=== PATIENT | female | born 1970 | race Hispanic/Latino ===

== ENCOUNTER → 2017-05-02 | Outpatient (CLI) | payer OTHER ==
[2017-05-02 13:19] LABS: ALBUMIN 3.4 g/dL (3.5-5.0); BILIRUBIN,DIRECT 0.1 mg/dL (0.0-0.3); BILIRUBIN,TOTAL 0.4 mg/dL (0.2-1.0); CREATININE 0.9 mg/dL (0.5-1.5); CRP QUANTITATIVE 13.3 mg/L (0.00-9.0); THYROID STIMULATING HORMONE 2.06 uIU/mL (0.36-3.74); TOTAL PROTEIN, SERUM 8.1 g/dL (6.0-8.3)
[2017-05-02 13:31] LABS: EOSINOPHILS % (AUTO) 1.3 % (0.0-8.0); LYMPHOCYTES % (AUTO) 26.1 % (21.0-51.0); MEAN CORPUSCULAR HEMOGLOBIN 26.2 pg (27.0-33.0); MEAN CORPUSCULAR HGB CONC 33.3 g/dL (32.0-36.0); MEAN CORPUSCULAR VOLUME 78.7 fL (79-99); MONOCYTES % (AUTO) 4.7 % (3.0-13.0); NEUTROPHILS % (AUTO) 66.9 % (40.0-77.0); PLATELET COUNT (AUTO) 227 K/uL (130-400); RED BLOOD CELL COUNT(AUTO) 5.09 MIL/uL (4.00-5.50); RED CELL DISTRIBUTION WIDTH 14.5 % (11.0-15.5); WHITE BLOOD COUNT (AUTO) 8.7 K/uL (4.8-10.8)
[2017-05-02 14:36] LABS: ERYTHROCYTE SEDIMENTATION RATE 36 MM/HR (0-15)
[2017-05-06 06:15] LABS: VITAMIN D, 25-HYDROXY 15.7 ng/mL (30.0-100.0)
== END | disposition home or self-care (01) ==
LOC: LAB 11:53
PROVIDERS: ATTEND Internal Medicine
DX: I10 Essential (primary) hypertension (principal); E66.2 Morbid (severe) obesity with alveolar hypoventilation; R73.01 Impaired fasting glucose; R53.83 Other fatigue; Z98.891 History of uterine scar from previous surgery; Z98.890 Other specified postprocedural states
CPT/HCPCS: 36415; 80053; 80061; 82043; 82248; 82306; 82607; 83036; 83540; 84439; 84443; 85025; 85651; 86038; 86141; 86215; 86235; 86431

== ENCOUNTER 2017-07-08 15:50 | Emergency (ER) | payer OTHER ==
[2017-07-08] MEDS ORDERED: SODIUM CHLORIDE 0.9% 1000ML 1,000 ML IV ONE (16:15)
[2017-07-08] MEDS ORDERED: DICYCLOMINE HCL 10 MG/ML 2ML AMP IM ONE (16:15)
[2017-07-08 16:33] LABS: BASOPHILS % (AUTO) 0.6 % (0.0-5.0); EOSINOPHILS % (AUTO) 1.5 % (0.0-8.0); LYMPHOCYTES % (AUTO) 24.7 % (21.0-51.0); MEAN CORPUSCULAR HEMOGLOBIN 26.8 pg (27.0-33.0); NEUTROPHILS % (AUTO) 65.2 % (40.0-77.0); PLATELET COUNT (AUTO) 243 K/uL (130-400); RED CELL DISTRIBUTION WIDTH 14.4 % (11.0-15.5)
[2017-07-08 16:46] LABS: CREATININE 1.1 mg/dL (0.5-1.5); POTASSIUM 3.4 mmol/L (3.5-5.1)
[2017-07-08 16:50] LABS: ALBUMIN 3.2 g/dL (3.5-5.0); BILIRUBIN,TOTAL 0.2 mg/dL (0.2-1.0); TOTAL PROTEIN, SERUM 7.7 g/dL (6.0-8.3)
[2017-07-08 17:33] LABS: APPEARANCE,URINE Cloudy (CLEAR); BILIRUBIN,URINE Negative (NEGATIVE); COLOR,URINE Yellow (YELLOW); GLUCOSE, URINE (UA) Negative (NEGATIVE); KETONES,URINE Negative (NEGATIVE); LEUKOCYTE ESTERASE ,URINE Small (NEGATIVE); NITRATE,URINE Negative (NEGATIVE); OCCULT BLOOD,URINE Negative (NEGATIVE); PH,URINE 5.5 (5.0-8.0); PROTEIN,URINE POS 1+ (NEGATIVE)
[2017-07-08 17:52] LABS: AMORPHOUS SEDIMENT,UR Few /LPF (None Seen); BACTERIA,URINE Few /HPF (None Seen); RBC,URINE None Seen /HPF (0-1); SQUAMOUS EPITHELIAL CELL,UR 30-50 /HPF (0-2)
== END 2017-07-08 17:53 | disposition home or self-care (01) ==
LOC: EDH 15:50
DX: R10.9 Unspecified abdominal pain (principal); B96.81 Helicobacter pylori [H. pylori] as the cause of diseases classified elsewhere; E11.9 Type 2 diabetes mellitus without complications; I10 Essential (primary) hypertension; Z88.1 Allergy status to other antibiotic agents; Z91.013 Allergy to seafood; Z91.018 Allergy to other foods
CPT/HCPCS: 36415; 74176; 80053; 81001; 82150; 83690; 85025; 86677; 96372; 99285; J0500; J7030

== ENCOUNTER → 2017-07-23 | Outpatient (CLI) | payer OTHER ==
[2017-07-23 17:09] LABS: BASOPHILS % (AUTO) 0.7 % (0.0-5.0); EOSINOPHILS % (AUTO) 1.8 % (0.0-8.0); HEMATOCRIT 34.7 % (36-48); LYMPHOCYTES % (AUTO) 27.9 % (21.0-51.0); MEAN CORPUSCULAR HEMOGLOBIN 26.8 pg (27.0-33.0); MEAN CORPUSCULAR HGB CONC 33.6 g/dL (32.0-36.0); MEAN CORPUSCULAR VOLUME 79.6 fL (79-99); NEUTROPHILS % (AUTO) 63.6 % (40.0-77.0); PLATELET COUNT (AUTO) 210 K/uL (130-400); RED BLOOD CELL COUNT(AUTO) 4.36 MIL/uL (4.00-5.50); RED CELL DISTRIBUTION WIDTH 14.7 % (11.0-15.5); WHITE BLOOD COUNT (AUTO) 7.2 K/uL (4.8-10.8)
[2017-07-23 18:35] LABS: ERYTHROCYTE SEDIMENTATION RATE 36 MM/HR (0-15)
== END | disposition home or self-care (01) ==
LOC: LAB 10:00
PROVIDERS: ATTEND Internal Medicine
DX: M05.771 Rheumatoid arthritis with rheumatoid factor of right ankle and foot without organ or systems involvement (principal)
CPT/HCPCS: 36415; 85025; 85651; 86140; 86431

== ENCOUNTER 2018-01-17 17:48 | Emergency (ER) | payer OTHER ==
[2018-01-17 18:02] LABS: APPEARANCE,URINE Clear (CLEAR); BILIRUBIN,URINE Negative (NEGATIVE); COLOR,URINE Yellow (YELLOW); GLUCOSE, URINE (UA) Negative (NEGATIVE); KETONES,URINE Trace mg/dL (NEGATIVE); LEUKOCYTE ESTERASE ,URINE Trace (NEGATIVE); NITRATE,URINE Negative (NEGATIVE); OCCULT BLOOD,URINE Negative (NEGATIVE); PH,URINE 6.5 (5.0-8.0); PROTEIN,URINE POS 1+ (NEGATIVE)
[2018-01-17 18:37] LABS: BACTERIA,URINE Few /HPF (None Seen); MUCUS,URINE Few LPF (None Seen); RBC,URINE 0-1 /HPF (0-1); SQUAMOUS EPITHELIAL CELL,UR Few /HPF (0-2)
== END 2018-01-17 19:26 | disposition home or self-care (01) ==
LOC: EDH 17:48
DX: N39.0 Urinary tract infection, site not specified (principal)
CPT/HCPCS: 81001

== ENCOUNTER → 2018-04-10 | Outpatient (CLI) | payer OTHER ==
[2018-04-10 11:03] LABS: BASOPHILS % (AUTO) 0.8 % (0.0-5.0); EOSINOPHILS % (AUTO) 1.7 % (0.0-8.0); HEMATOCRIT 40.4 % (36-48); MEAN CORPUSCULAR HEMOGLOBIN 26.4 pg (27.0-33.0); MEAN CORPUSCULAR HGB CONC 33.2 g/dL (32.0-36.0); MEAN CORPUSCULAR VOLUME 79.6 fL (79-99); MONOCYTES % (AUTO) 5.9 % (3.0-13.0); NEUTROPHILS % (AUTO) 61.6 % (40.0-77.0); NUCLEATED RED BLOOD CELLS 0.2 % (0.0-0.19); PLATELET COUNT (AUTO) 204 K/uL (130-400); RED BLOOD CELL COUNT(AUTO) 5.08 MIL/uL (4.00-5.50); RED CELL DISTRIBUTION WIDTH 14.4 % (11.0-15.5); WHITE BLOOD COUNT (AUTO) 5.9 K/uL (4.8-10.8)
[2018-04-10 11:07] LABS: POTASSIUM 3.9 mmol/L (3.5-5.1)
[2018-04-10 11:19] LABS: ALBUMIN 3.5 g/dL (3.5-5.0); BILIRUBIN,DIRECT 0.1 mg/dL (0.0-0.3); BILIRUBIN,TOTAL 0.3 mg/dL (0.2-1.0); THYROID STIMULATING HORMONE 2.81 uIU/mL (0.36-3.74); TOTAL PROTEIN, SERUM 8.3 g/dL (6.0-8.3)
[2018-04-10 11:31] LABS: HEMOGLOBIN A1C 7.2 % (4.0-6.0)
== END | disposition home or self-care (01) ==
LOC: RAH 09:30
PROVIDERS: ATTEND Internal Medicine
DX: M24.811 Other specific joint derangements of right shoulder, not elsewhere classified (principal); M25.511 Pain in right shoulder; E11.9 Type 2 diabetes mellitus without complications; R70.0 Elevated erythrocyte sedimentation rate; R79.82 Elevated C-reactive protein (CRP)
CPT/HCPCS: 36415; 73221; 80053; 80061; 80076; 82043; 82306; 82607; 82728; 83036; 84443; 85025

== ENCOUNTER 2018-05-06 19:08 | Emergency (ER) | payer OTHER | END 2018-05-06 19:41 | disposition home or self-care (01) | LOC: EDH 19:08 | DX: G56.01 Carpal tunnel syndrome, right upper limb (principal); I10 Essential (primary) hypertension; Z88.1 Allergy status to other antibiotic agents; Z90.710 Acquired absence of both cervix and uterus; Z98.890 Other specified postprocedural states | CPT/HCPCS: 29125 ==

== ENCOUNTER 2018-08-12 21:34 | Inpatient (IN) | payer OTHER ==
[~2018-08-12] VITALS: Ht 152.4 cm; Wt 135.2 kg
[2018-08-13] VITALS: BP 187/91
[2018-08-13 04:00] VITALS: BP 143/69
[2018-08-13] MEDS ORDERED: IBUP-2077 PO (05:16)
[2018-08-13] MEDS ORDERED: LOSA1TAB42 PO (05:16)
[2018-08-13] MEDS ORDERED: CARV12.580 PO (05:16)
[2018-08-13 07:34] LABS: HEMATOCRIT 39.4 % (36-48); MEAN CORPUSCULAR HEMOGLOBIN 26.8 pg (27.0-33.0); MEAN CORPUSCULAR HGB CONC 33.6 g/dL (32.0-36.0); NUCLEATED RED BLOOD CELLS 0.1 % (0.0-0.19); PLATELET COUNT (AUTO) 189 K/uL (130-400); RED BLOOD CELL COUNT(AUTO) 4.93 MIL/uL (4.00-5.50); RED CELL DISTRIBUTION WIDTH 14.7 % (11.0-15.5); WHITE BLOOD COUNT (AUTO) 7.4 K/uL (4.8-10.8)
[2018-08-13 07:41] VITALS: BP 164/100
[2018-08-13 07:42] LABS: ALBUMIN 3.3 g/dL (3.5-5.0); BILIRUBIN,TOTAL 0.3 mg/dL (0.2-1.0); CREATININE 0.9 mg/dL (0.5-1.5); POTASSIUM 3.7 mmol/L (3.5-5.1); TOTAL PROTEIN, SERUM 7.7 g/dL (6.0-8.3)
[2018-08-13] MEDS ORDERED: GADODIAMIDE 10 MMOL/20 ML VIAL IV ONE (08:25)
--- NOTE | 2018-08-13 09:00 | NUR ---
DR. PRATIBHA CORONADO HERE TO SEE PATIENT, PATIENT CURRENTLY IN MRI PROCEDURE.
[2018-08-13] MEDS ORDERED: IBUPROFEN 800 MG TAB PO PRN (09:30)
[2018-08-13] MEDS ORDERED: NON-FORMULARY MEDICATION 1 EACH (Losartan/Hydrochlorothiazide (Losartan-Hctz 100-12.5 mg T PO PRN (09:30)
[2018-08-13] MEDS ORDERED: CARVEDILOL 12.5 MG TABLET PO ONE (10:53)
[2018-08-13 11:53] VITALS: BP 159/90
--- NOTE | 2018-08-13 12:19 | NUR ---
PAGED DR. LEDBETTER CALLED DR. LEDBETTER TO INFORM HIM OF DR. MCKINNON'S RECOMMENDATIONS REGARDING MRI BRAIN RESULTS AND RECOMMEND ONCOLOGY CONSULT. NO ANSWER AT THIS TIME. WILL REATTEMPT TO CALL
--- NOTE | 2018-08-13 13:00 | NUR ---
REPAGED DR. LEDBETTER REATTEMPTED TO CALL , NO ANSWER AT THIS TIME.
--- NOTE | 2018-08-13 14:20 | NUR ---
DR. LEDBETTER SPOKE TO REGARDING DR. MCKINNON'S RECOMMENDATIONS. DR. LEDBETTER GAVE TELEPHONE ORDER TO CONSULT WITH DR. ALICEA.
--- NOTE | 2018-08-13 14:27 | NUR ---
DR. NIXON CROWE MD REGARDING CONSULT, AWAITING CALLBACK.
--- NOTE | 2018-08-13 15:55 | NUR ---
DR. SALONI ALICEA IS OUT OF TOWN, DR. ALICEA'S OFFICE INFORMED ME DR. GUALLPA COVERING FOR DR. ALICEA. DR. GUALLPA PAGED REGARDING CONSULT. AWAITING CALLBACK.
--- NOTE | 2018-08-13 16:00 | NUR ---
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 Will follow for MD recommendation. DORA pollard at this time Addendum: 08/13/18 at 1739 by GREY CABRAL RN CM Amended: Links added.
[2018-08-13 16:44] VITALS: BP 168/76
[2018-08-13 19:30] VITALS: BP 156/97
[2018-08-14] VITALS (7 sets, daily range): BP systolic 134–169; BP diastolic 74–105
[2018-08-14 05:08] LABS: THYROID STIMULATING HORMONE 4.78 uIU/mL (0.36-3.74)
--- NOTE | 2018-08-14 07:25 | NUR ---
MD MARIO. DR.KOTTA MARIO IN PT ROOM THIS MORNING. DISCUSSED WITH PT PLAN OF CARE. NEW ORDERS GIVEN TO CONSULT NEUROSURGERY INSULATION NOZZLEMAN. PT IS AWARE AND VERBALIZES UNDERSTANDING TO TREATMENT PLAN. Addendum: 08/14/18 at 0739 by TROY FARMER RN Amended: Links added.
[2018-08-14] MEDS ORDERED: GADODIAMIDE 10 MMOL/20 ML VIAL IV ONE (07:52)
[2018-08-14] MEDS: CARVEDILOL 12.5 MG TABLET PO SCH (11:38)
--- NOTE | 2018-08-14 16:11 | NUR ---
notified dr. jha about the consult. he verbalized that he will the patient tomorrow and ordered decadron 4 mg IV q6.
[2018-08-14] MEDS: DEXAMETHASONE SOD PHOSPHATE 4 MG/ML 1ML VIAL IVP SCH (22:19)
[2018-08-15] MEDS: DEXAMETHASONE SOD PHOSPHATE 4 MG/ML 1ML VIAL IVP SCH ×3 (01:00→12:36)
[2018-08-15] MEDS ORDERED: CARV12.511 PO (01:44)
[2018-08-15 04:05] VITALS: BP 134/87
[2018-08-15 07:30] VITALS: BP 157/97
[2018-08-15] MEDS ORDERED: LOSA1TAB42 PO (07:40)
[2018-08-15] MEDS ORDERED: CARVEDILOL 12.5 MG TABLET PO SCH (09:00)
[2018-08-15] MEDS ORDERED: NON-FORMULARY MEDICATION 1 EACH (Losartan/Hydrochlorothiazide (Losartan-Hctz 100-12.5 mg T PO SCH (09:00)
[2018-08-15] MEDS ORDERED: LOSARTAN 100 MG TABLET PO SCH (09:01)
[2018-08-15] MEDS ORDERED: HYDROCHLOROTHIAZIDE 25 MG TABLET PO SCH (09:02)
[2018-08-15] MEDS: CARVEDILOL 12.5 MG TABLET PO SCH (09:23)
[2018-08-15 11:00] VITALS: BP 163/107
== END 2018-08-15 18:00 | disposition home or self-care (01) | DRG 55 ==
LOC: EDH 21:34 → INTOOBSV 21:35 → OBSVTOIN 21:35 → EDHIP 21:35 → 4BH 22:12
PROVIDERS: ADMIT Internal Medicine; ATTEND Internal Medicine
DX: D49.6 Neoplasm of unspecified behavior of brain (principal); H46.9 Unspecified optic neuritis; I10 Essential (primary) hypertension; E11.9 Type 2 diabetes mellitus without complications; Z98.84 Bariatric surgery status; Z90.710 Acquired absence of both cervix and uterus
CPT/HCPCS: 36415; 70553; 80053; 80400; 83001; 83002; 84146; 84439; 84443; 84481; 85027; A9579; G0378; J1100

== ENCOUNTER → 2018-09-28 | Outpatient (CLI) | payer OTHER ==
[~2018-09-28] MED LIST: CARV12.511 PO; IBUP-2077 PO; LOSA1TAB42 PO
[2018-09-28 15:26] LABS: BASOPHILS % (AUTO) 0.6 % (0.0-5.0); EOSINOPHILS % (AUTO) 1.8 % (0.0-8.0); HEMATOCRIT 38.3 % (36-48); LYMPHOCYTES % (AUTO) 20.8 % (21.0-51.0); MEAN CORPUSCULAR HEMOGLOBIN 27.1 pg (27.0-33.0); MEAN CORPUSCULAR HGB CONC 33.2 g/dL (32.0-36.0); MEAN CORPUSCULAR VOLUME 81.5 fL (79-99); MONOCYTES % (AUTO) 5.8 % (3.0-13.0); NUCLEATED RED BLOOD CELLS 0.1 % (0.0-0.19); PLATELET COUNT (AUTO) 205 K/uL (130-400); RED CELL DISTRIBUTION WIDTH 14.7 % (11.0-15.5); WHITE BLOOD COUNT (AUTO) 7.7 K/uL (4.8-10.8)
[2018-09-28 15:30] LABS: CREATININE 1.2 mg/dL (0.5-1.5); POTASSIUM 4.1 mmol/L (3.5-5.1)
[2018-09-28 15:34] LABS: INR 0.96 (0.85-1.15); PARTIAL THROMBOPLASTIN TIME 26.4 SEC (26.3-35.5); PROTHROMBIN TIME 10.1 SEC (9.6-11.6)
== END | disposition home or self-care (01) ==
LOC: LAB 14:15
PROVIDERS: ATTEND Internal Medicine
DX: I10 Essential (primary) hypertension (principal); R22.0 Localized swelling, mass and lump, head
CPT/HCPCS: 36415; 80048; 85025; 85610; 85730

== ENCOUNTER → 2018-12-01 | Outpatient (CLI) | payer OTHER | END | disposition home or self-care (01) | LOC: LAB 13:52 | PROVIDERS: ATTEND Internal Medicine | DX: I10 Essential (primary) hypertension (principal) | CPT/HCPCS: 36415; 80048 ==

== ENCOUNTER → 2018-12-02 | Outpatient (CLI) | payer OTHER ==
[2018-12-01 15:02] LABS: POTASSIUM 4.2 mmol/L (3.5-5.1)
[~2018-12-02] MED LIST changes: +GADODIAMIDE 10 MMOL/20 ML VIAL IV ONE
== END | disposition home or self-care (01) ==
LOC: RAH 12-01 10:00
PROVIDERS: ATTEND Internal Medicine
DX: I62.00 Nontraumatic subdural hemorrhage, unspecified (principal); R22.0 Localized swelling, mass and lump, head; Z98.890 Other specified postprocedural states
CPT/HCPCS: 70553; A9579; 36415; 80048

== ENCOUNTER → 2019-07-28 | Outpatient (CLI) | payer OTHER ==
[~2019-07-28] MED LIST changes: +APIX5TAB PO; +ASCO500T20 PO; +ASPI-1005 PO; +ASPI-1012 PO; +DEXA6TAB PO; +DOXY100T2 PO; -GADODIAMIDE 10 MMOL/20 ML VIAL IV ONE; +GUAI5SYR PO; +METH4TAB3 PO; +ZINC220C6 PO
[2019-07-28 08:54] LABS: BASOPHILS % (AUTO) 0.6 % (0.0-5.0); EOSINOPHILS % (AUTO) 1.6 % (0.0-8.0); HEMATOCRIT 40.8 % (36-48); LYMPHOCYTES % (AUTO) 22.3 % (21.0-51.0); MEAN CORPUSCULAR HGB CONC 30.9 g/dL (32.0-36.0); MEAN CORPUSCULAR VOLUME 80.8 fL (79-99); MONOCYTES % (AUTO) 4.9 % (3.0-13.0); NEUTROPHILS % (AUTO) 70.3 % (40.0-77.0); PLATELET COUNT (AUTO) 239 K/uL (130-400); RED BLOOD CELL COUNT(AUTO) 5.05 MIL/uL (4.00-5.50); RED CELL DISTRIBUTION WIDTH 14.5 % (11.0-15.5); WHITE BLOOD COUNT (AUTO) 6.8 K/uL (4.8-10.8)
[2019-07-28 09:33] LABS: HEMOGLOBIN A1C 6.9 % (4.0-6.0)
[2019-07-28 09:34] LABS: ALANINE AMINOTRANSFERASE 26 U/L (12-78); ALBUMIN 3.6 g/dL (3.5-5.0); ASPARTATE AMINOTRANSFERASE 19 U/L (10-37); BILIRUBIN,DIRECT 0.1 mg/dL (0.0-0.3); BILIRUBIN,TOTAL 0.3 mg/dL (0.2-1.0); CARBON DIOXIDE 31 mmol/L (21-32); CHLORIDE 102 mmol/L (101-111); CHOLESTEROL 154 mg/dL (<200); GLOMERULAR FILTR. RATE CALC 63 mL/min (>60); GLUCOSE,RANDOM 122 mg/dL (70-105); HDL CHOLESTEROL 42 mg/dL (35-85); LDL DIRECT 90 mg/dL (0-99); POTASSIUM 3.6 mmol/L (3.5-5.1); SODIUM SERUM 140 mmol/L (136-145); THYROID STIMULATING HORMONE 3.59 uIU/mL (0.36-3.74); TOTAL PROTEIN, SERUM 8.3 g/dL (6.0-8.3); TRIGLYCERIDES 139 mg/dL (30-200); UREA NITROGEN, BLOOD 15 mg/dL (7-18)
[2019-07-28 09:40] LABS: AMMONIA < 3 umol/L (11-32)
== END | disposition home or self-care (01) ==
LOC: LAB 07:11
PROVIDERS: ATTEND Internal Medicine
DX: E11.65 Type 2 diabetes mellitus with hyperglycemia (principal); E26.1 Secondary hyperaldosteronism; E66.2 Morbid (severe) obesity with alveolar hypoventilation; I10 Essential (primary) hypertension; R22.0 Localized swelling, mass and lump, head
CPT/HCPCS: 36415; 80053; 80061; 80076; 82140; 82306; 82533; 82607; 82672; 82728; 83036; 84144; 84443; 85025

== ENCOUNTER → 2019-08-13 | Outpatient (CLI) | payer OTHER | END | disposition home or self-care (01) | LOC: RAH 12:47 | PROVIDERS: ATTEND Internal Medicine | DX: Z98.890 Other specified postprocedural states (principal) | CPT/HCPCS: 70553 ==

== ENCOUNTER 2019-09-05 13:43 | Emergency (ER) | payer OTHER ==
[~2019-09-05 13:43] MED LIST changes: -APIX5TAB PO; -ASCO500T20 PO; -ASPI-1005 PO; -ASPI-1012 PO; -DEXA6TAB PO; -DOXY100T2 PO; -GUAI5SYR PO; -METH4TAB3 PO; -ZINC220C6 PO
[2019-09-05 15:02] LABS: RAPID GROUP A STREP NEGATIVE (NEGATIVE)
[2019-09-12] MEDS ORDERED: GUAI5SYR PO ×2 (11:58)
[2019-09-12] MEDS ORDERED: ASPI-1012 PO ×2 (11:58)
[2019-09-12] MEDS ORDERED: DOXY100T2 PO ×2 (11:58)
[2019-09-12] MEDS ORDERED: ZINC220C6 PO ×2 (11:58)
[2019-09-12] MEDS ORDERED: ASCO500T20 PO ×2 (11:58)
[2019-09-12] MEDS ORDERED: METH4TAB3 PO ×2 (11:58)
== END 2019-09-05 16:39 | disposition home or self-care (01) ==
LOC: EDH 13:43
DX: U07.1 COVID-19 (principal); R05 Cough; I10 Essential (primary) hypertension; Z88.1 Allergy status to other antibiotic agents
CPT/HCPCS: 36415; 87804 ×2; 87880; 99283; U0003

== ENCOUNTER 2019-09-10 12:16 | Inpatient (IN) | payer OTHER ==
[~2019-09-10] VITALS: Ht 152.4 cm; Wt 131.3 kg
[2019-09-10] MEDS ORDERED: CEFTRIAXONE SODIUM 1 GM ONE (14:32)
[2019-09-10] MEDS ORDERED: METHYLPREDNISOLONE SOD SUCC 40MG/ML 1ML ONE (14:32)
[2019-09-10] MEDS ORDERED: SODIUM CHLORIDE 0.9% 1000ML 1,000 ML IV ONE ×2 (14:32→16:39)
[2019-09-10 14:35] LABS: BASOPHILS % (AUTO) 0.2 % (0.0-5.0); HEMATOCRIT 41.8 % (36-48); LYMPHOCYTES % (AUTO) 9.3 % (21.0-51.0); MEAN CORPUSCULAR HEMOGLOBIN 25.6 pg (27.0-33.0); MEAN CORPUSCULAR HGB CONC 32.1 g/dL (32.0-36.0); MEAN CORPUSCULAR VOLUME 79.9 fL (79-99); MONOCYTES % (AUTO) 5.5 % (3.0-13.0); NEUTROPHILS % (AUTO) 84.8 % (40.0-77.0); PLATELET COUNT (AUTO) 160 K/uL (130-400); RED BLOOD CELL COUNT(AUTO) 5.23 MIL/uL (4.00-5.50); RED CELL DISTRIBUTION WIDTH 14.9 % (11.0-15.5); WHITE BLOOD COUNT (AUTO) 4.9 K/uL (4.8-10.8)
[2019-09-10] MEDS ORDERED: SODIUM CHLORIDE 0.9% 50 ML IV ONE (14:36)
[2019-09-10 14:50] LABS: INR 0.92 (0.85-1.15); PARTIAL THROMBOPLASTIN TIME 26.4 SEC (26.3-35.5)
[2019-09-10] MEDS ORDERED: AZITHROMYCIN 500MG+NS 250ML 250 ML IV ONE (14:59)
[2019-09-10 15:03] LABS: CARBON DIOXIDE 30 mmol/L (21-32); CHLORIDE 100 mmol/L (101-111); CREATININE 0.8 mg/dL (0.5-1.5); GLOMERULAR FILTR. RATE CALC 82 mL/min (>60); GLUCOSE,RANDOM 142 mg/dL (70-105); POTASSIUM 4.2 mmol/L (3.5-5.1); SODIUM SERUM 138 mmol/L (136-145); UREA NITROGEN, BLOOD 16 mg/dL (7-18)
[2019-09-10 15:15] LABS: ALANINE AMINOTRANSFERASE 48 U/L (12-78); ALBUMIN 3.6 g/dL (3.5-5.0); ASPARTATE AMINOTRANSFERASE 34 U/L (10-37); BILIRUBIN,TOTAL 0.3 mg/dL (0.2-1.0); CREATINE KINASE, TOTAL 97 U/L (21-232); MYOGLOBIN 41 ng/mL (10-92); TOTAL PROTEIN, SERUM 8.9 g/dL (6.0-8.3); TROPONIN I < 0.04 ng/mL (0.00-0.06)
[2019-09-10] MEDS: CEFTRIAXONE SODIUM 1 GM IVP SCH (17:00)
[2019-09-10] MEDS ORDERED: ERGOCALCIFEROL (VITAMIN D2) 50,000 UNIT CAPSULE PO ONE (17:00)
[2019-09-10] MEDS ORDERED: ACETAMINOPHEN 325 MG TAB PO PRN ×2 (17:00)
[2019-09-10] MEDS ORDERED: ONDANSETRON HCL 4 MG/2 ML VIAL IV PRN (17:00)
[2019-09-10] MEDS ORDERED: GUAIFENESIN-DM 200/20 MG 10 ML PO PRN (17:30)
[2019-09-10 17:40] LABS: APPEARANCE,URINE Cloudy (CLEAR); BILIRUBIN,URINE Negative (NEGATIVE); COLOR,URINE Yellow (YELLOW); GLUCOSE, URINE (UA) Negative (NEGATIVE); KETONES,URINE Trace mg/dL (NEGATIVE); LEUKOCYTE ESTERASE ,URINE Small (NEGATIVE); NITRATE,URINE Negative (NEGATIVE); OCCULT BLOOD,URINE Negative (NEGATIVE); PROTEIN,URINE POS 2+ mg/dL (NEGATIVE)
[2019-09-10 17:55] LABS: BACTERIA,URINE Few /HPF (None Seen); MUCUS,URINE Moderate LPF (None Seen); SQUAMOUS EPITHELIAL CELL,UR Moderate /HPF (0-2)
[2019-09-10] MEDS: DOXYCYCLINE HYCLATE 100 MG TABLET PO SCH (21:00)
[2019-09-10] MEDS: METHYLPREDNISOLONE SOD SUCC 40MG/ML 1ML IVP SCH (21:00)
[2019-09-10] MEDS: FAMOTIDINE/PF 20 MG/2 ML VIAL IV SCH (21:00)
[2019-09-10] MEDS: CARVEDILOL 12.5 MG TABLET PO SCH (21:00)
[2019-09-10] MEDS: ENOXAPARIN SODIUM 40 MG/0.4 ML SYRINGE SQ SCH (21:00)
[2019-09-10] MEDS ORDERED: GUAIFENESIN-DM 200/20 MG 10 ML ONE (21:12)
[2019-09-10] MEDS ORDERED: DOXYCYCLINE HYCLATE 100 MG TABLET PO ONE (21:12)
[2019-09-10] MEDS ORDERED: ERGOCALCIFEROL (VITAMIN D2) 50,000 UNIT CAPSULE ONE (21:12)
[2019-09-10] MEDS ORDERED: CARVEDILOL 12.5 MG TABLET PO ONE (21:12)
[2019-09-10] MEDS ORDERED: FAMOTIDINE/PF 20 MG/2 ML VIAL IV ONE (21:13)
[2019-09-11] MEDS ORDERED: CEFTRIAXONE SODIUM 1 GM ONE (02:45)
[2019-09-11 03:15] VITALS: BP 142/73
[2019-09-11 04:16] VITALS: BP 140/79
[2019-09-11] MEDS: CEFTRIAXONE SODIUM 1 GM IVP SCH ×2 (06:02→16:54)
[2019-09-11 08:00] VITALS: BP 156/88
[2019-09-11] MEDS: HYDROCHLOROTHIAZIDE 25 MG TABLET PO SCH (09:11)
[2019-09-11] MEDS: ASCORBIC ACID 500 MG TAB PO SCH (09:11)
[2019-09-11] MEDS: LOSARTAN 100 MG TABLET PO SCH (09:11)
[2019-09-11] MEDS: DOXYCYCLINE HYCLATE 100 MG TABLET PO SCH ×2 (09:11→21:17)
[2019-09-11] MEDS: CARVEDILOL 12.5 MG TABLET PO SCH ×2 (09:12→21:17)
[2019-09-11] MEDS: METHYLPREDNISOLONE SOD SUCC 40MG/ML 1ML IVP SCH ×3 (09:13→21:16)
[2019-09-11] MEDS: FAMOTIDINE/PF 20 MG/2 ML VIAL IV SCH ×2 (09:13→21:14)
[2019-09-11] MEDS: ENOXAPARIN SODIUM 40 MG/0.4 ML SYRINGE SQ SCH ×2 (09:14→21:25)
[2019-09-11 11:02] LABS: HEMOGLOBIN A1C 7.5 % (4.0-6.0)
[2019-09-11 11:12] LABS: ALANINE AMINOTRANSFERASE 40 U/L (12-78); ASPARTATE AMINOTRANSFERASE 27 U/L (10-37); BILIRUBIN,TOTAL 0.2 mg/dL (0.2-1.0); CARBON DIOXIDE 31 mmol/L (21-32); CHLORIDE 104 mmol/L (101-111); CREATININE 0.9 mg/dL (0.5-1.5); GLOMERULAR FILTR. RATE CALC 71 mL/min (>60); GLUCOSE,RANDOM 135 mg/dL (70-105); POTASSIUM 4.1 mmol/L (3.5-5.1); SODIUM SERUM 138 mmol/L (136-145); TOTAL PROTEIN, SERUM 7.3 g/dL (6.0-8.3); UREA NITROGEN, BLOOD 15 mg/dL (7-18)
[2019-09-11] MEDS ORDERED: IOHEXOL 350 MG/ML 100ML INFUS..BTL IV ONE (11:56)
[2019-09-11 12:00] VITALS: BP 161/91
[2019-09-11 16:00] VITALS: BP 164/89
[2019-09-11] MEDS: ZINC SULFATE 220 CAPSULE PO SCH (16:55)
[2019-09-11 17:52] LABS: BASOPHILS % (AUTO) 0.2 % (0.0-5.0); HEMATOCRIT 39.5 % (36-48); LYMPHOCYTES % (AUTO) 11.7 % (21.0-51.0); MEAN CORPUSCULAR HEMOGLOBIN 25.3 pg (27.0-33.0); MEAN CORPUSCULAR HGB CONC 31.1 g/dL (32.0-36.0); MEAN CORPUSCULAR VOLUME 81.3 fL (79-99); MONOCYTES % (AUTO) 6.6 % (3.0-13.0); NEUTROPHILS % (AUTO) 81.3 % (40.0-77.0); PLATELET COUNT (AUTO) 156 K/uL (130-400); RED BLOOD CELL COUNT(AUTO) 4.86 MIL/uL (4.00-5.50); RED CELL DISTRIBUTION WIDTH 15.1 % (11.0-15.5); WHITE BLOOD COUNT (AUTO) 5.3 K/uL (4.8-10.8)
[2019-09-11 20:16] VITALS: BP 154/87
[2019-09-12 00:16] VITALS: BP 146/72
[2019-09-12 04:16] VITALS: BP 150/77
[2019-09-12] MEDS: CEFTRIAXONE SODIUM 1 GM IVP SCH (05:32)
[2019-09-12 07:12] LABS: HEMATOCRIT 38.9 % (36-48); LYMPHOCYTES % (AUTO) 12.8 % (21.0-51.0); MEAN CORPUSCULAR HEMOGLOBIN 25.3 pg (27.0-33.0); MEAN CORPUSCULAR HGB CONC 31.9 g/dL (32.0-36.0); MEAN CORPUSCULAR VOLUME 79.4 fL (79-99); MONOCYTES % (AUTO) 5.2 % (3.0-13.0); PLATELET COUNT (AUTO) 149 K/uL (130-400); RED CELL DISTRIBUTION WIDTH 14.6 % (11.0-15.5); WHITE BLOOD COUNT (AUTO) 3.7 K/uL (4.8-10.8)
[2019-09-12] MEDS ORDERED: DILTIAZEM HCL 60 MG TABLET ONE (07:15)
[2019-09-12] MEDS ORDERED: METOPROLOL TARTRATE 50 MG TAB ONE (07:15)
[2019-09-12 07:55] LABS: ALANINE AMINOTRANSFERASE 48 U/L (12-78); ASPARTATE AMINOTRANSFERASE 30 U/L (10-37); BILIRUBIN,TOTAL 0.3 mg/dL (0.2-1.0); CARBON DIOXIDE 30 mmol/L (21-32); CHLORIDE 100 mmol/L (101-111); CREATININE 0.8 mg/dL (0.5-1.5); GLOMERULAR FILTR. RATE CALC 82 mL/min (>60); GLUCOSE,RANDOM 190 mg/dL (70-105); POTASSIUM 3.8 mmol/L (3.5-5.1); SODIUM SERUM 136 mmol/L (136-145); TOTAL PROTEIN, SERUM 7.8 g/dL (6.0-8.3); UREA NITROGEN, BLOOD 14 mg/dL (7-18)
[2019-09-12 08:00] VITALS: BP 131/62
[2019-09-12] MEDS: ENOXAPARIN SODIUM 40 MG/0.4 ML SYRINGE SQ SCH (09:07)
[2019-09-12] MEDS: CARVEDILOL 12.5 MG TABLET PO SCH (09:08)
[2019-09-12] MEDS: METHYLPREDNISOLONE SOD SUCC 40MG/ML 1ML IVP SCH ×2 (09:09→14:38)
[2019-09-12] MEDS: ASCORBIC ACID 500 MG TAB PO SCH (09:09)
[2019-09-12] MEDS: LOSARTAN 100 MG TABLET PO SCH (09:09)
[2019-09-12] MEDS: DOXYCYCLINE HYCLATE 100 MG TABLET PO SCH (09:09)
[2019-09-12] MEDS: HYDROCHLOROTHIAZIDE 25 MG TABLET PO SCH (09:09)
[2019-09-12] MEDS: FAMOTIDINE/PF 20 MG/2 ML VIAL IV SCH (09:09)
[2019-09-12] MEDS ORDERED: ZINC220C6 PO (11:58)
[2019-09-12] MEDS ORDERED: ASPI-1012 PO (11:58)
[2019-09-12] MEDS ORDERED: GUAI5SYR PO (11:58)
[2019-09-12] MEDS ORDERED: ASCO500T20 PO (11:58)
[2019-09-12] MEDS ORDERED: METH4TAB3 PO (11:58)
[2019-09-12] MEDS ORDERED: DOXY100T2 PO (11:58)
[2019-09-12 12:00] VITALS: BP 148/73
[2019-09-12] MEDS: ZINC SULFATE 220 CAPSULE PO SCH (14:38)
[2019-09-12 16:00] VITALS: BP 164/85
== END 2019-09-12 18:20 | disposition home or self-care (01) | DRG 177 ==
LOC: EDH 12:16 → EDHIP 16:44 → 4CH 09-11 03:09
PROVIDERS: ADMIT Internal Medicine; ATTEND Internal Medicine
DX: U07.1 COVID-19 (principal); J96.01 Acute respiratory failure with hypoxia; J12.89 Other viral pneumonia; N39.0 Urinary tract infection, site not specified; Z68.43 Body mass index [BMI] 50.0-59.9, adult; I10 Essential (primary) hypertension; J30.2 Other seasonal allergic rhinitis; E11.9 Type 2 diabetes mellitus without complications; E66.01 Morbid (severe) obesity due to excess calories; Z91.013 Allergy to seafood; Z88.8 Allergy status to other drugs, medicaments and biological substances; Z80.9 Family history of malignant neoplasm, unspecified; Z83.3 Family history of diabetes mellitus; Z82.49 Family history of ischemic heart disease and other diseases of the circulatory system
CPT/HCPCS: 36415; 71045; 80053; 81001; 82550; 82948; 83036; 83605; 83874; 84145; 84484; 85025; 85378; 85610; 85730; 86140; 86850; 86870; 86900; 86901; 87040; 87088; 93005; 93970; 94760; G0378; J0456; J0696; J1650; J2920; J3490; J7030; Q9967

== ENCOUNTER 2019-09-15 16:12 | Inpatient (IN) | payer OTHER ==
[~2019-09-15] VITALS: Ht 152.4 cm; Wt 128.2 kg
[~2019-09-15 16:12] MED LIST changes: +ASCO500T20 PO; +ASPI-1012 PO; +DOXY100T2 PO; +GUAI5SYR PO; -IBUP-2077 PO; +METH4TAB3 PO; +ZINC220C6 PO
[2019-09-15 17:06] LABS: BASOPHILS % (AUTO) 0.1 % (0.0-5.0); HEMATOCRIT 38.3 % (36-48); LYMPHOCYTES % (AUTO) 5.1 % (21.0-51.0); MEAN CORPUSCULAR HEMOGLOBIN 25.2 pg (27.0-33.0); MEAN CORPUSCULAR HGB CONC 32.1 g/dL (32.0-36.0); MEAN CORPUSCULAR VOLUME 78.5 fL (79-99); MONOCYTES % (AUTO) 4.3 % (3.0-13.0); NEUTROPHILS % (AUTO) 89.5 % (40.0-77.0); PLATELET COUNT (AUTO) 221 K/uL (130-400); RED BLOOD CELL COUNT(AUTO) 4.88 MIL/uL (4.00-5.50); RED CELL DISTRIBUTION WIDTH 14.8 % (11.0-15.5); WHITE BLOOD COUNT (AUTO) 10.9 K/uL (4.8-10.8)
[2019-09-15 17:17] LABS: POTASSIUM 4.3 mmol/L (3.5-5.1)
[2019-09-15 17:23] LABS: ALBUMIN 2.6 g/dL (3.5-5.0); BILIRUBIN,TOTAL 0.4 mg/dL (0.2-1.0); CRP QUANTITATIVE 135.1 mg/L (0.00-9.0); TOTAL PROTEIN, SERUM 7.6 g/dL (6.0-8.3)
[2019-09-15 17:27] LABS: B-TYPE NATRIURETIC PEPTIDE 9 pg/mL (0-100)
[2019-09-15 17:39] LABS: INR 0.99 (0.85-1.15); PARTIAL THROMBOPLASTIN TIME 27.4 SEC (26.3-35.5); PROTHROMBIN TIME 10.7 SEC (9.6-11.6)
[2019-09-15 17:47] LABS: FERRITIN 279 ng/mL (15-150)
[2019-09-15] MEDS ORDERED: GUAIFENESIN-DM 200/20 MG 10 ML PO PRN (21:00)
[2019-09-15] MEDS ORDERED: ERGOCALCIFEROL (VITAMIN D2) 50,000 UNIT CAPSULE PO ONE (21:00)
[2019-09-15] MEDS: CARVEDILOL 12.5 MG TABLET PO SCH (21:00)
[2019-09-15] MEDS: METHYLPREDNISOLONE SOD SUCC 40MG/ML 1ML IVP SCH (21:00)
[2019-09-15] MEDS ORDERED: ONDANSETRON HCL 4 MG/2 ML VIAL IV PRN (21:30)
[2019-09-15] MEDS ORDERED: ACETAMINOPHEN 325 MG TAB PO PRN ×2 (21:30)
[2019-09-15] MEDS ORDERED: VANCOMYCIN PROTOCOL PER PHARMACY IV SCH (21:30)
[2019-09-15] MEDS: MEROPENEM 1 GM VIAL IVP SCH (21:30)
[2019-09-15] MEDS ORDERED: DEXTROSE 50%-WATER 50 ML DISP.SYRIN IV PRN (21:45)
[2019-09-15] MEDS ORDERED: GLUCAGON 1MG KIT 1 MG ML IM PRN (21:45)
[2019-09-15] MEDS ORDERED: METHYLPREDNISOLONE SOD SUCC 40MG/ML 1ML ONE (21:49)
[2019-09-15] MEDS ORDERED: MEROPENEM 1 GM VIAL ONE (21:49)
[2019-09-15] MEDS ORDERED: VANCOMYCIN 1GM+NS 250ML 250 ML IV ONE (21:49)
[2019-09-15] MEDS ORDERED: CARVEDILOL 12.5 MG TABLET PO ONE (21:49)
[2019-09-15] MEDS ORDERED: SODIUM CHLORIDE 0.9% 50 ML IV ONE (21:50)
[2019-09-15 23:39] LABS: APPEARANCE,URINE Clear (CLEAR); BILIRUBIN,URINE Negative (NEGATIVE); COLOR,URINE Dark Yellow (YELLOW); GLUCOSE, URINE (UA) Negative (NEGATIVE); KETONES,URINE Negative (NEGATIVE); LEUKOCYTE ESTERASE ,URINE Negative (NEGATIVE); NITRATE,URINE Negative (NEGATIVE); OCCULT BLOOD,URINE Negative (NEGATIVE); PH,URINE 5.5 (5.0-8.0); PROTEIN,URINE POS 2+ mg/dL (NEGATIVE)
[2019-09-15 23:49] LABS: BACTERIA,URINE None Seen /HPF (None Seen); MUCUS,URINE Rare LPF (None Seen); RBC,URINE None Seen /HPF (0-1); SQUAMOUS EPITHELIAL CELL,UR Few /HPF (0-2); WBC,URINE None Seen /HPF (0-1)
[2019-09-16] MEDS: MEROPENEM 1 GM VIAL IVP SCH ×3 (05:30→22:02)
[2019-09-16 06:08] LABS: BASOPHILS % (AUTO) 0.1 % (0.0-5.0); HEMATOCRIT 41.3 % (36-48); LYMPHOCYTES % (AUTO) 6.6 % (21.0-51.0); MEAN CORPUSCULAR HEMOGLOBIN 25.4 pg (27.0-33.0); MEAN CORPUSCULAR HGB CONC 31.7 g/dL (32.0-36.0); MONOCYTES % (AUTO) 2.1 % (3.0-13.0); NEUTROPHILS % (AUTO) 90.1 % (40.0-77.0); PLATELET COUNT (AUTO) 243 K/uL (130-400); RED BLOOD CELL COUNT(AUTO) 5.16 MIL/uL (4.00-5.50); RED CELL DISTRIBUTION WIDTH 14.7 % (11.0-15.5); WHITE BLOOD COUNT (AUTO) 10.3 K/uL (4.8-10.8)
[2019-09-16 07:15] LABS: ALANINE AMINOTRANSFERASE 75 U/L (12-78); ALBUMIN 2.7 g/dL (3.5-5.0); ASPARTATE AMINOTRANSFERASE 33 U/L (10-37); BILIRUBIN,TOTAL 0.4 mg/dL (0.2-1.0); CARBON DIOXIDE 24 mmol/L (21-32); CHLORIDE 98 mmol/L (101-111); GLOMERULAR FILTR. RATE CALC 63 mL/min (>60); GLUCOSE,RANDOM 243 mg/dL (70-105); LACTATE DEHYDROGENASE 463 U/L (81-234); POTASSIUM 4.6 mmol/L (3.5-5.1); SODIUM SERUM 134 mmol/L (136-145); TOTAL PROTEIN, SERUM 8.1 g/dL (6.0-8.3); UREA NITROGEN, BLOOD 25 mg/dL (7-18)
[2019-09-16] MEDS: INSULIN HUMULIN R 100 UNIT/ML 3ML SQ SCH ×4 (07:30→22:06)
[2019-09-16] MEDS ORDERED: METHYLPREDNISOLONE SOD SUCC 40MG/ML 1ML ONE ×2 (07:36→14:47)
[2019-09-16] MEDS ORDERED: ASCORBIC ACID 500 MG TAB ONE (07:36)
[2019-09-16] MEDS ORDERED: ASPIRIN 81MG TAB.CHEW ONE (07:36)
[2019-09-16] MEDS ORDERED: HYDROCHLOROTHIAZIDE 25 MG TABLET ONE (07:37)
[2019-09-16] MEDS ORDERED: ZINC SULFATE 220 CAPSULE ONE (07:37)
[2019-09-16] MEDS ORDERED: LOSARTAN 50 MG TABLET ONE ×2 (07:37→07:52)
[2019-09-16] MEDS ORDERED: ENOXAPARIN SODIUM 40 MG/0.4 ML SYRINGE SQ ONE (07:37)
[2019-09-16] MEDS ORDERED: CARVEDILOL 12.5 MG TABLET PO ONE (07:37)
[2019-09-16] MEDS ORDERED: FAMOTIDINE/PF 20 MG/2 ML VIAL IV ONE (07:38)
[2019-09-16] MEDS ORDERED: INSULIN HUMULIN R 100 UNIT/ML 3ML ONE ×2 (07:53→13:09)
[2019-09-16] MEDS: ASPIRIN 81MG TAB.CHEW PO SCH (09:00)
[2019-09-16] MEDS ORDERED: ENOXAPARIN SODIUM 40 MG/0.4 ML SYRINGE SQ SCH (09:00)
[2019-09-16] MEDS: ASCORBIC ACID 500 MG TAB PO SCH (09:00)
[2019-09-16] MEDS: HYDROCHLOROTHIAZIDE 25 MG TABLET PO SCH (09:00)
[2019-09-16] MEDS: CARVEDILOL 12.5 MG TABLET PO SCH ×2 (09:00→22:02)
[2019-09-16] MEDS: LOSARTAN 100 MG TABLET PO SCH (09:00)
[2019-09-16] MEDS: ZINC SULFATE 220 CAPSULE PO SCH (09:00)
[2019-09-16] MEDS: FAMOTIDINE/PF 20 MG/2 ML VIAL IV SCH ×2 (09:00→20:14)
[2019-09-16] MEDS: METHYLPREDNISOLONE SOD SUCC 40MG/ML 1ML IVP SCH ×3 (09:00→20:14)
[2019-09-16] MEDS ORDERED: ALBUTEROL INHALER 90MCG/INH IH ONE (10:48)
[2019-09-16] MEDS ORDERED: GUAIFENESIN-DM 200/20 MG 10 ML ONE (11:04)
[2019-09-16] MEDS ORDERED: MEROPENEM 1 GM VIAL ONE (14:19)
[2019-09-16] MEDS ORDERED: PHARMACY COMMUNICATION MISC SCH (14:30)
--- NOTE | 2019-09-16 14:38 | NUR ---
CHART CHECK COMPLETED. Pt IS A 48 Y.O. FEMALE ADMITTED SECONDARY TO COVID PNEUMONIA, INFECTION AND ACUTE HYPOXIA. Pt HAS A PAST MEDICAL HISTORY SIGNIFICANT FOR HYPERTENSION, BRAIN SX, , GASTRIC SLEEVE, HYSTERECTOMY. Pt CURRENTLY ON CLEAR LIQUID DIET. PLEASE REQUEST FORMAL SKILLED SPEECH/SWALLOW EVALUATION IF Pt PRESENTS WITH +S/S OF ASPIRATION SUCH COUGH RESPONSE, THROAT CLEAR, OR WET VOCAL QUALITY DURING P.O. Addendum: 09/16/19 at 1440 by LINA TSAI, SPT ST Amended: Links added.
[2019-09-16] MEDS ORDERED: [UNRECOGNIZED DRUG - REMARK] MISC SCH (15:45)
[2019-09-16 16:48] LABS: ABG BASE EXCESS 2.9 mmol/L (-2.0-3.0); ABG HCO3 28.1 mmol/L (21.0-28.0); ABG PCO2 46 mmHg (32-45)
[2019-09-16 17:00] VITALS: BP 177/99
--- NOTE | 2019-09-16 17:00 | NUR ---
TONO BIANCHI W DAUGHTER TO DC PLANNING STATES PATIENT LIVES ALONE, IS INDEPENDENT, STATES NO DME, DRIVE, IS EMPLOYED IN HEALTH CARE, SEE DR. LEDBETTER REGULARLY, AND DCP IS HOME DTR OR SISTER TO PROVIDE TRANSPORT Addendum: 09/17/19 at 2103 by GREY CABRAL RN CM Amended: Links added.
[2019-09-16 20:15] VITALS: BP 147/85
[2019-09-17 00:51] VITALS: BP 153/76
[2019-09-17] MEDS: MEROPENEM 1 GM VIAL IVP SCH (05:48)
[2019-09-17 06:28] VITALS: BP 177/86
[2019-09-17] MEDS: INSULIN HUMULIN R 100 UNIT/ML 3ML SQ SCH ×6 (06:30→22:06)
[2019-09-17 07:31] LABS: BASOPHILS % (AUTO) 0.1 % (0.0-5.0); HEMATOCRIT 39.7 % (36-48); MEAN CORPUSCULAR HGB CONC 31.7 g/dL (32.0-36.0); MEAN CORPUSCULAR VOLUME 78.8 fL (79-99); MONOCYTES % (AUTO) 4.7 % (3.0-13.0); NEUTROPHILS % (AUTO) 87.6 % (40.0-77.0); PLATELET COUNT (AUTO) 283 K/uL (130-400); RED BLOOD CELL COUNT(AUTO) 5.04 MIL/uL (4.00-5.50); RED CELL DISTRIBUTION WIDTH 14.5 % (11.0-15.5); WHITE BLOOD COUNT (AUTO) 11.1 K/uL (4.8-10.8)
[2019-09-17 08:00] VITALS: BP 147/95
[2019-09-17 08:02] LABS: ALANINE AMINOTRANSFERASE 63 U/L (12-78); ALBUMIN 2.5 g/dL (3.5-5.0); ASPARTATE AMINOTRANSFERASE 19 U/L (10-37); BILIRUBIN,TOTAL 0.3 mg/dL (0.2-1.0); CARBON DIOXIDE 32 mmol/L (21-32); CHLORIDE 99 mmol/L (101-111); GLOMERULAR FILTR. RATE CALC 63 mL/min (>60); GLUCOSE,RANDOM 289 mg/dL (70-105); LACTATE DEHYDROGENASE 270 U/L (81-234); POTASSIUM 4.6 mmol/L (3.5-5.1); SODIUM SERUM 134 mmol/L (136-145); TOTAL PROTEIN, SERUM 7.4 g/dL (6.0-8.3); UREA NITROGEN, BLOOD 23 mg/dL (7-18)
[2019-09-17] MEDS ORDERED: IVERMECTIN 3 MG TAB PO SCH (09:00)
[2019-09-17] MEDS: METHYLPREDNISOLONE SOD SUCC 40MG/ML 1ML IVP SCH ×3 (09:42→21:12)
[2019-09-17] MEDS: FAMOTIDINE/PF 20 MG/2 ML VIAL IV SCH ×2 (09:42→21:13)
[2019-09-17] MEDS: LOSARTAN 100 MG TABLET PO SCH (09:42)
[2019-09-17] MEDS: HYDROCHLOROTHIAZIDE 25 MG TABLET PO SCH (09:44)
[2019-09-17] MEDS ORDERED: INSULIN HUMULIN 70/30 100 UNIT/ML 3ML SQ SCH ×2 (09:45→16:30)
[2019-09-17] MEDS: ASPIRIN 81MG TAB.CHEW PO SCH (09:49)
[2019-09-17] MEDS: ASCORBIC ACID 500 MG TAB PO SCH (09:50)
[2019-09-17] MEDS: CARVEDILOL 12.5 MG TABLET PO SCH ×2 (09:50→21:13)
[2019-09-17] MEDS: ZINC SULFATE 220 CAPSULE PO SCH (09:50)
[2019-09-17 12:00] VITALS: BP 149/84
[2019-09-17 16:00] VITALS: BP 119/67
[2019-09-17 20:40] VITALS: BP 150/78
[2019-09-17] MEDS: ENOXAPARIN SODIUM 40 MG/0.4 ML SYRINGE SQ SCH (21:11)
[2019-09-18 00:44] VITALS: BP 134/80
[2019-09-18 06:26] LABS: ALANINE AMINOTRANSFERASE 65 U/L (12-78); ALBUMIN 2.7 g/dL (3.5-5.0); ASPARTATE AMINOTRANSFERASE 20 U/L (10-37); BILIRUBIN,TOTAL 0.3 mg/dL (0.2-1.0); CARBON DIOXIDE 32 mmol/L (21-32); CHLORIDE 99 mmol/L (101-111); CREATININE 1.1 mg/dL (0.5-1.5); GLOMERULAR FILTR. RATE CALC 57 mL/min (>60); GLUCOSE,RANDOM 336 mg/dL (70-105); LACTATE DEHYDROGENASE 247 U/L (81-234); POTASSIUM 4.6 mmol/L (3.5-5.1); SODIUM SERUM 134 mmol/L (136-145); TOTAL PROTEIN, SERUM 7.6 g/dL (6.0-8.3); UREA NITROGEN, BLOOD 30 mg/dL (7-18)
[2019-09-18 06:32] VITALS: BP 156/88
[2019-09-18] MEDS: INSULIN HUMULIN R 100 UNIT/ML 3ML SQ SCH ×7 (06:54→21:12)
[2019-09-18] MEDS: INSULIN NPH 100 UNIT/ML 3ML SQ SCH ×2 (06:55→15:51)
[2019-09-18] MEDS ORDERED: INSULIN HUMULIN 70/30 100 UNIT/ML 3ML SQ SCH (07:30)
[2019-09-18 08:00] VITALS: BP 165/95
[2019-09-18] MEDS: ASCORBIC ACID 500 MG TAB PO SCH (08:28)
[2019-09-18] MEDS: ENOXAPARIN SODIUM 40 MG/0.4 ML SYRINGE SQ SCH ×2 (08:28→21:10)
[2019-09-18] MEDS: LOSARTAN 100 MG TABLET PO SCH (08:29)
[2019-09-18] MEDS: ASPIRIN 81MG TAB.CHEW PO SCH (08:29)
[2019-09-18] MEDS: ZINC SULFATE 220 CAPSULE PO SCH (08:29)
[2019-09-18] MEDS: CARVEDILOL 12.5 MG TABLET PO SCH ×2 (08:29→21:11)
[2019-09-18] MEDS: HYDROCHLOROTHIAZIDE 25 MG TABLET PO SCH (08:30)
[2019-09-18] MEDS: FAMOTIDINE/PF 20 MG/2 ML VIAL IV SCH ×2 (08:30→21:10)
[2019-09-18] MEDS: METHYLPREDNISOLONE SOD SUCC 40MG/ML 1ML IVP SCH ×3 (08:31→21:00)
[2019-09-18 11:39] VITALS: BP 127/84
[2019-09-18] MEDS: NYSTATIN 100000 UNIT/ML 5ML UDCUP PO SCH ×3 (14:28→21:09)
[2019-09-18 16:00] VITALS: BP 133/72
[2019-09-18 20:35] VITALS: BP 135/76
[2019-09-19 00:25] VITALS: BP 129/73
[2019-09-19 06:19] VITALS: BP 152/85
[2019-09-19] MEDS: INSULIN NPH 100 UNIT/ML 3ML SQ SCH (07:17)
[2019-09-19] MEDS: INSULIN HUMULIN R 100 UNIT/ML 3ML SQ SCH ×6 (07:19→21:45)
[2019-09-19 08:40] VITALS: BP 146/88
[2019-09-19] MEDS: FAMOTIDINE/PF 20 MG/2 ML VIAL IV SCH ×2 (08:44→21:19)
[2019-09-19] MEDS: LOSARTAN 100 MG TABLET PO SCH (08:44)
[2019-09-19] MEDS: ASCORBIC ACID 500 MG TAB PO SCH (08:44)
[2019-09-19] MEDS: ASPIRIN 81MG TAB.CHEW PO SCH (08:45)
[2019-09-19] MEDS: METHYLPREDNISOLONE SOD SUCC 40MG/ML 1ML IVP SCH ×3 (08:45→21:19)
[2019-09-19] MEDS: HYDROCHLOROTHIAZIDE 25 MG TABLET PO SCH (08:45)
[2019-09-19] MEDS: ZINC SULFATE 220 CAPSULE PO SCH (08:45)
[2019-09-19] MEDS: CARVEDILOL 12.5 MG TABLET PO SCH ×2 (08:46→21:20)
[2019-09-19] MEDS: NYSTATIN 100000 UNIT/ML 5ML UDCUP PO SCH ×4 (09:00→21:20)
[2019-09-19] MEDS: ENOXAPARIN SODIUM 40 MG/0.4 ML SYRINGE SQ SCH ×2 (09:24→21:25)
[2019-09-19 11:51] VITALS: BP 128/84
[2019-09-19 16:00] VITALS: BP 121/62
[2019-09-20] VITALS: BP 131/72
[2019-09-20 04:00] VITALS: BP 128/76
[2019-09-20] MEDS: INSULIN HUMULIN R 100 UNIT/ML 3ML SQ SCH ×4 (07:10→22:09)
[2019-09-20 08:00] VITALS: BP 148/78
[2019-09-20] MEDS: CARVEDILOL 12.5 MG TABLET PO SCH ×2 (08:23→22:04)
[2019-09-20] MEDS: ASPIRIN 81MG TAB.CHEW PO SCH (08:23)
[2019-09-20] MEDS: FAMOTIDINE/PF 20 MG/2 ML VIAL IV SCH ×2 (08:23→22:04)
[2019-09-20] MEDS: METHYLPREDNISOLONE SOD SUCC 40MG/ML 1ML IVP SCH ×3 (08:23→22:04)
[2019-09-20] MEDS: LOSARTAN 100 MG TABLET PO SCH (08:23)
[2019-09-20] MEDS: ENOXAPARIN SODIUM 40 MG/0.4 ML SYRINGE SQ SCH ×2 (08:24→22:05)
[2019-09-20] MEDS: HYDROCHLOROTHIAZIDE 25 MG TABLET PO SCH (08:24)
[2019-09-20] MEDS: ZINC SULFATE 220 CAPSULE PO SCH (08:24)
[2019-09-20] MEDS: NYSTATIN 100000 UNIT/ML 5ML UDCUP PO SCH ×4 (08:24→21:00)
[2019-09-20] MEDS: ASCORBIC ACID 500 MG TAB PO SCH (08:24)
[2019-09-20 12:00] VITALS: BP 107/57
[2019-09-20 16:00] VITALS: BP 152/72
[2019-09-20 20:00] VITALS: BP 150/93
[2019-09-20] MEDS: INSULIN NPH 100 UNIT/ML 3ML SQ SCH (22:09)
[2019-09-21] MEDS ORDERED: SODIUM CHLORIDE 0.9% 500ML 500 ML IV ONE (00:03)
[2019-09-21 00:13] VITALS: BP 129/77
--- NOTE | 2019-09-21 00:30 | NUR ---
convalescent plasma infusion Pt started on 1 unit of convalescent plasma, vss. Pt A/Ox4, resp even and unlabored. Pt denies any sob, dizziness, n/v, no symptoms of allergic reaction. Will continue to monitor throughout transfusion.
--- NOTE | 2019-09-21 01:10 | NUR ---
CONV PLASMA COMPLETED Transufused 1 unit of conv plasma, pt tolerated well. Denies pain, no sob noted.VSS, pt offers no complaints.
[2019-09-21 05:37] VITALS: BP 140/75
[2019-09-21] MEDS: INSULIN HUMULIN R 100 UNIT/ML 3ML SQ SCH ×7 (06:47→20:35)
[2019-09-21] MEDS: INSULIN NPH 100 UNIT/ML 3ML SQ SCH ×2 (06:48→20:33)
[2019-09-21 07:31] LABS: BASOPHILS % (AUTO) 0.2 % (0.0-5.0); HEMATOCRIT 39.5 % (36-48); LYMPHOCYTES % (AUTO) 4.9 % (21.0-51.0); MEAN CORPUSCULAR HEMOGLOBIN 25.3 pg (27.0-33.0); MEAN CORPUSCULAR HGB CONC 31.9 g/dL (32.0-36.0); MEAN CORPUSCULAR VOLUME 79.2 fL (79-99); MONOCYTES % (AUTO) 3.3 % (3.0-13.0); NEUTROPHILS % (AUTO) 88.9 % (40.0-77.0); PLATELET COUNT (AUTO) 284 K/uL (130-400); RED BLOOD CELL COUNT(AUTO) 4.99 MIL/uL (4.00-5.50); RED CELL DISTRIBUTION WIDTH 14.6 % (11.0-15.5); WHITE BLOOD COUNT (AUTO) 17.3 K/uL (4.8-10.8)
[2019-09-21 07:42] LABS: ALBUMIN 2.7 g/dL (3.5-5.0); BILIRUBIN,TOTAL 0.3 mg/dL (0.2-1.0); CRP QUANTITATIVE 4.7 mg/L (0.00-9.0); POTASSIUM 4.4 mmol/L (3.5-5.1); TOTAL PROTEIN, SERUM 7.1 g/dL (6.0-8.3)
[2019-09-21 08:00] VITALS: BP 163/89
[2019-09-21] MEDS: NYSTATIN 100000 UNIT/ML 5ML UDCUP PO SCH ×4 (09:00→21:00)
--- NOTE | 2019-09-21 10:00 | NUR ---
STARTED LATE AFTER RECEIVING REPORT AND LATE ASSIGNMENT. PATIENT IS HOPING TO GO HOME AND IS ON 2L VIA N/C AT THIS TIME. I ASKED HER IF SHE HAS BEEN WALKING AROUND AND STATES THAT SHE HAS SOME BUT NOT MUCH. I TOLD HER THAT WHEN SHE'S HOME SHE WILL BE MORE ACTIVE AND WILL QUICKLY DECOMPENSATE IF SHE'S OFF OXYGEN AND WILL NEED TO BE EVALUATED BY RESPIRATORY THERAPY PRIOR TO DETERMINING IF SHE CAN GO HOME. PLUS IF OXYGEN IS NEEDED, THAT IS SOMETHING THAT WILL HAVE TO BE SET UP. WILL FOLLOW UP ON ALL HER QUESTIONS SOON WE HAVE ANY DOCTORS OR PLANT MAINTENANCE TECHNICIAN THAT WILL BE COMING BY. Addendum: 09/21/19 at 1644 by JOSÉ WOOD RN RN Amended: Links added.
[2019-09-21] MEDS: LOSARTAN 100 MG TABLET PO SCH (10:40)
[2019-09-21] MEDS: ASPIRIN 81MG TAB.CHEW PO SCH (10:40)
[2019-09-21] MEDS: HYDROCHLOROTHIAZIDE 25 MG TABLET PO SCH (10:40)
[2019-09-21] MEDS: ZINC SULFATE 220 CAPSULE PO SCH (10:41)
[2019-09-21] MEDS: ASCORBIC ACID 500 MG TAB PO SCH (10:41)
[2019-09-21] MEDS: FAMOTIDINE/PF 20 MG/2 ML VIAL IV SCH ×2 (10:41→20:29)
[2019-09-21] MEDS: CARVEDILOL 12.5 MG TABLET PO SCH ×2 (10:41→20:28)
[2019-09-21] MEDS: METHYLPREDNISOLONE SOD SUCC 40MG/ML 1ML IVP SCH ×3 (10:41→20:28)
[2019-09-21] MEDS: ENOXAPARIN SODIUM 40 MG/0.4 ML SYRINGE SQ SCH ×2 (10:43→20:27)
[2019-09-21 11:00] VITALS: BP 135/90
--- NOTE | 2019-09-21 12:00 | NUR ---
PATIENT IS OFF OXYGEN AT THIS TIME TO SEE IF SHE MIGHT BE ABLE TO GO HOME ALTHOUGH SHE IS JUST LYING IN BED. INSTRUCTED THAT TRUCK SHOP MECHANIC HAD ORDERED A RESPIRATORY EVALUATION AND WILL SEE HOW SHE DOES OR IF SHE MIGHT NEED OXYGEN AT HOME. WILL CONTINUE TO FOLLOW AND MONITOR CLOSELY AND INSTRUCTED TO CALL WITH ANY NEEDS, CONCERNS OR FOR ANY ASSISTANCE. PATIENT PULLED OUT HER IV AND INSTRUCTED THAT WE WILL NEED TO START ANOTHER ONE IF SHE DOESN'T GO HOME. Addendum: 09/21/19 at 1700 by JOSÉ WOOD RN RN Amended: Links added.
[2019-09-21 16:00] VITALS: BP_SYST 123; BP_SYST 129; BP_DIAS 63; BP_DIAS 85
--- NOTE | 2019-09-21 16:00 | NUR ---
RESPIRATORY EVALUATED PATIENT AND SHE DECOMPENSATED QUICKLY. WILL CONTINUE TO MONITOR AND FOLLOW QUICKLY. Addendum: 09/21/19 at 1712 by JOSÉ WOOD RN RN Amended: Links added.
[2019-09-21 20:00] VITALS: BP 132/63
[2019-09-22] VITALS: BP 136/82
[2019-09-22 04:00] VITALS: BP 158/79
[2019-09-22] MEDS: INSULIN HUMULIN R 100 UNIT/ML 3ML SQ SCH ×4 (06:26→12:32)
[2019-09-22] MEDS: INSULIN NPH 100 UNIT/ML 3ML SQ SCH (06:28)
[2019-09-22 06:57] LABS: BASOPHILS % (AUTO) 0.1 % (0.0-5.0); HEMATOCRIT 40.8 % (36-48); LYMPHOCYTES % (AUTO) 5.2 % (21.0-51.0); MEAN CORPUSCULAR HEMOGLOBIN 25.1 pg (27.0-33.0); MEAN CORPUSCULAR HGB CONC 31.9 g/dL (32.0-36.0); MEAN CORPUSCULAR VOLUME 78.9 fL (79-99); MONOCYTES % (AUTO) 3.1 % (3.0-13.0); NEUTROPHILS % (AUTO) 88.8 % (40.0-77.0); PLATELET COUNT (AUTO) 309 K/uL (130-400); RED BLOOD CELL COUNT(AUTO) 5.17 MIL/uL (4.00-5.50); RED CELL DISTRIBUTION WIDTH 14.7 % (11.0-15.5); WHITE BLOOD COUNT (AUTO) 15.7 K/uL (4.8-10.8)
[2019-09-22 07:17] LABS: ALBUMIN 2.8 g/dL (3.5-5.0); BILIRUBIN,TOTAL 0.3 mg/dL (0.2-1.0); CREATININE 0.9 mg/dL (0.5-1.5); CRP QUANTITATIVE 6.8 mg/L (0.00-9.0); POTASSIUM 4.6 mmol/L (3.5-5.1); TOTAL PROTEIN, SERUM 7.2 g/dL (6.0-8.3)
[2019-09-22 07:30] VITALS: BP 141/81
[2019-09-22] MEDS ORDERED: DEXA6TAB PO (08:56)
[2019-09-22] MEDS: ASPIRIN 81MG TAB.CHEW PO SCH (09:14)
[2019-09-22] MEDS: HYDROCHLOROTHIAZIDE 25 MG TABLET PO SCH (09:15)
[2019-09-22] MEDS: ASCORBIC ACID 500 MG TAB PO SCH (09:15)
[2019-09-22] MEDS: CARVEDILOL 12.5 MG TABLET PO SCH (09:15)
[2019-09-22] MEDS: FAMOTIDINE/PF 20 MG/2 ML VIAL IV SCH (09:15)
[2019-09-22] MEDS: ZINC SULFATE 220 CAPSULE PO SCH (09:15)
[2019-09-22] MEDS: LOSARTAN 100 MG TABLET PO SCH (09:15)
[2019-09-22] MEDS: ENOXAPARIN SODIUM 40 MG/0.4 ML SYRINGE SQ SCH (09:16)
[2019-09-22] MEDS: METHYLPREDNISOLONE SOD SUCC 40MG/ML 1ML IVP SCH (09:17)
[2019-09-22] MEDS: NYSTATIN 100000 UNIT/ML 5ML UDCUP PO SCH ×2 (09:35→12:23)
[2019-09-22 11:00] VITALS: BP 149/73
--- NOTE | 2019-09-22 14:29 | NUR ---
discussed discharge instructions, prescriptions, and follow up recommendations. pt verbalized an understanding of reviewed material. pt understands preventative ways to prevent spread of Covid 19.
[2019-09-22] MEDS ORDERED: INSULIN HUMULIN R 100 UNIT/ML 3ML SQ SCH (17:00)
[2019-09-22] MEDS ORDERED: INSULIN NPH 100 UNIT/ML 3ML SQ SCH (20:00)
[2019-09-23] MEDS ORDERED: INSULIN NPH 100 UNIT/ML 3ML SQ SCH (08:00)
== END 2019-09-22 17:00 | disposition home or self-care (01) | DRG 177 ==
LOC: EDH 16:12 → EDHIP 21:22 → 4CH 09-16 17:12
PROVIDERS: ADMIT Internal Medicine; ATTEND Internal Medicine
PROC: 30233K1 Transfusion of Nonautologous Frozen Plasma into Peripheral Vein, Percutaneous Approach (ICD-10-PCS; principal; 2019-09-20)
DX: U07.1 COVID-19 (principal); J12.89 Other viral pneumonia; J96.01 Acute respiratory failure with hypoxia; Z68.43 Body mass index [BMI] 50.0-59.9, adult; I10 Essential (primary) hypertension; T38.3X6A Underdosing of insulin and oral hypoglycemic [antidiabetic] drugs, initial encounter; T38.0X5A Adverse effect of glucocorticoids and synthetic analogues, initial encounter; E11.65 Type 2 diabetes mellitus with hyperglycemia; G47.33 Obstructive sleep apnea (adult) (pediatric); E66.01 Morbid (severe) obesity due to excess calories; Z98.84 Bariatric surgery status; Z91.11 Patient's noncompliance with dietary regimen; Y92.89 Other specified places as the place of occurrence of the external cause; Z90.710 Acquired absence of both cervix and uterus; Z98.891 History of uterine scar from previous surgery; Z82.49 Family history of ischemic heart disease and other diseases of the circulatory system; Z83.3 Family history of diabetes mellitus; Z84.89 Family history of other specified conditions
CPT/HCPCS: 36415; 36600; 71045; 80053; 81001; 82435; 82550; 82728; 82803; 82947; 82948; 83605; 83615; 83880; 84132; 84145; 84295; 84484; 85018; 85025; 85378; 85610; 85730; 86140; 86850; 86870; 86900; 86901; 86905; 86922; 86927; 87040; 93970; 94760; G0378; J1650; J1815; J2185; J2920; J3370; J3490; J7040

== ENCOUNTER → 2019-10-01 | Outpatient (CLI) | payer OTHER ==
[~2019-10-01] MED LIST changes: +APIX5TAB PO; +ASPI-1005 PO; +DEXA6TAB PO
[2019-10-01 10:45] LABS: MEAN CORPUSCULAR HEMOGLOBIN 25.3 pg (27.0-33.0); MEAN CORPUSCULAR HGB CONC 30.8 g/dL (32.0-36.0); MEAN CORPUSCULAR VOLUME 82.3 fL (79-99); PLATELET COUNT (AUTO) 203 K/uL (130-400); RED BLOOD CELL COUNT(AUTO) 4.62 MIL/uL (4.00-5.50); RED CELL DISTRIBUTION WIDTH 15.9 % (11.0-15.5); WHITE BLOOD COUNT (AUTO) 8.1 K/uL (4.8-10.8)
[2019-10-01 11:27] LABS: ALBUMIN 2.9 g/dL (3.5-5.0); BILIRUBIN,TOTAL 0.3 mg/dL (0.2-1.0); CRP QUANTITATIVE 6.8 mg/L (0.00-9.0); THYROID STIMULATING HORMONE 4.2 uIU/mL (0.36-3.74)
[2019-10-01 11:51] LABS: ERYTHROCYTE SEDIMENTATION RATE 34 MM/HR (0-20)
[2019-10-01 12:25] LABS: EOSINOPHILS % (MANUAL) 3 % (1-6); LYMPHOCYTES % (MANUAL) 39 % (22-44); MAN.DIFF COMMENT-IMPRESSION MANUAL DIFFERENTIAL; MONOCYTES % (MANUAL) 3 % (2-9); PLATELET MORPHOLOGY COMMENT ADEQUATE; SEGMENTED NEUTROPHILS % 55 % (40-70)
== END | disposition home or self-care (01) ==
LOC: RAH 09:34
PROVIDERS: ATTEND Internal Medicine
DX: R91.8 Other nonspecific abnormal finding of lung field (principal); R06.02 Shortness of breath; R06.09 Other forms of dyspnea; I51.7 Cardiomegaly
CPT/HCPCS: 36415; 71046; 80053; 82728; 84443; 85025; 85378; 85651; 86140

== ENCOUNTER → 2019-10-14 | Outpatient (CLI) | payer OTHER ==
[~2019-10-14] MED LIST changes: -APIX5TAB PO; -ASPI-1005 PO
[2019-10-14 11:20] LABS: BASOPHILS % (AUTO) 0.3 % (0.0-5.0); EOSINOPHILS % (AUTO) 2.4 % (0.0-8.0); HEMATOCRIT 38.3 % (36-48); LYMPHOCYTES % (AUTO) 27.9 % (21.0-51.0); MEAN CORPUSCULAR HEMOGLOBIN 26.2 pg (27.0-33.0); MEAN CORPUSCULAR HGB CONC 31.6 g/dL (32.0-36.0); MEAN CORPUSCULAR VOLUME 83.1 fL (79-99); MONOCYTES % (AUTO) 7.9 % (3.0-13.0); NEUTROPHILS % (AUTO) 60.6 % (40.0-77.0); PLATELET COUNT (AUTO) 249 K/uL (130-400); RED BLOOD CELL COUNT(AUTO) 4.61 MIL/uL (4.00-5.50); RED CELL DISTRIBUTION WIDTH 17.7 % (11.0-15.5); WHITE BLOOD COUNT (AUTO) 6.6 K/uL (4.8-10.8)
[2019-10-14 11:38] LABS: ALBUMIN 3.1 g/dL (3.5-5.0); BILIRUBIN,TOTAL 0.4 mg/dL (0.2-1.0); POTASSIUM 4.3 mmol/L (3.5-5.1); THYROID STIMULATING HORMONE 2.63 uIU/mL (0.36-3.74); TOTAL PROTEIN, SERUM 7.2 g/dL (6.0-8.3)
[2019-10-14 11:41] LABS: FERRITIN 60 ng/mL (15-150)
[2019-10-14 12:23] LABS: ERYTHROCYTE SEDIMENTATION RATE 20 MM/HR (0-20)
== END | disposition home or self-care (01) ==
LOC: RAH 09:53
PROVIDERS: ATTEND Internal Medicine
DX: R06.02 Shortness of breath (principal); M47.814 Spondylosis without myelopathy or radiculopathy, thoracic region
CPT/HCPCS: 36415; 71046; 80053; 82728; 83615; 84443; 84484; 85025; 85651; 86140

== ENCOUNTER 2019-10-21 16:39 | Inpatient (IN) | payer OTHER ==
[~2019-10-21] VITALS: Ht 152.4 cm; Wt 132.4 kg
[2019-10-21 17:20] LABS: BASOPHILS % (AUTO) 0.3 % (0.0-5.0); HEMATOCRIT 37.9 % (36-48); LYMPHOCYTES % (AUTO) 27.4 % (21.0-51.0); MEAN CORPUSCULAR HEMOGLOBIN 26.1 pg (27.0-33.0); MEAN CORPUSCULAR HGB CONC 32.2 g/dL (32.0-36.0); MONOCYTES % (AUTO) 7.6 % (3.0-13.0); PLATELET COUNT (AUTO) 231 K/uL (130-400); RED BLOOD CELL COUNT(AUTO) 4.68 MIL/uL (4.00-5.50); RED CELL DISTRIBUTION WIDTH 16.9 % (11.0-15.5); WHITE BLOOD COUNT (AUTO) 6.8 K/uL (4.8-10.8)
[2019-10-21 17:36] LABS: POTASSIUM 3.6 mmol/L (3.5-5.1)
[2019-10-21 17:40] LABS: ALBUMIN 3.3 g/dL (3.5-5.0); BILIRUBIN,DIRECT 0.1 mg/dL (0.0-0.3); BILIRUBIN,TOTAL 0.4 mg/dL (0.2-1.0); TOTAL PROTEIN, SERUM 7.4 g/dL (6.0-8.3)
[2019-10-21 17:44] LABS: B-TYPE NATRIURETIC PEPTIDE 11 pg/mL (0-100)
[2019-10-21] MEDS ORDERED: ALPRAZOLAM 0.5 MG TABLET PO PRN (21:30)
[2019-10-21] MEDS ORDERED: SODIUM CHLORIDE 0.9% 10 ML VIAL IVP PRN (21:30)
[2019-10-21] MEDS ORDERED: FUROSEMIDE 10 MG/ML 4ML VIAL ONE (21:39)
[2019-10-21] MEDS ORDERED: CEFTRIAXONE SODIUM 1 GM ONE (21:40)
[2019-10-21] MEDS ORDERED: ENOXAPARIN SODIUM 120 MG/0.8ML SQ ONE (21:40)
[2019-10-21] MEDS ORDERED: ACETAMINOPHEN 325 MG TAB ONE (21:40)
[2019-10-21] MEDS ORDERED: SODIUM CHLORIDE 0.9% 50 ML IV ONE (21:41)
[2019-10-21] MEDS: CEFTRIAXONE SODIUM 1 GM IVP SCH (22:00)
[2019-10-21] MEDS: ENOXAPARIN SODIUM 120 MG/0.8ML SQ SCH (22:00)
[2019-10-21] MEDS ORDERED: FUROSEMIDE 10 MG/ML 4ML VIAL IVP ONE (22:00)
[2019-10-22 00:45] VITALS: BP 152/100
[2019-10-22 03:25] VITALS: BP 137/88
[2019-10-22] MEDS ORDERED: ASPI-1005 PO (05:00)
[2019-10-22 05:40] LABS: HEMATOCRIT 37.7 % (36-48); MEAN CORPUSCULAR HEMOGLOBIN 25.7 pg (27.0-33.0); MEAN CORPUSCULAR HGB CONC 31.3 g/dL (32.0-36.0); RED BLOOD CELL COUNT(AUTO) 4.6 MIL/uL (4.00-5.50); WHITE BLOOD COUNT (AUTO) 6.4 K/uL (4.8-10.8)
[2019-10-22 05:58] LABS: BILIRUBIN,TOTAL 0.4 mg/dL (0.2-1.0); POTASSIUM 3.5 mmol/L (3.5-5.1); TOTAL PROTEIN, SERUM 6.9 g/dL (6.0-8.3)
[2019-10-22 08:26] VITALS: BP 139/86
[2019-10-22] MEDS: ENOXAPARIN SODIUM 120 MG/0.8ML SQ SCH ×2 (12:08→20:23)
[2019-10-22 12:17] VITALS: BP 154/101
[2019-10-22] MEDS ORDERED: ZINC SULFATE 220 CAPSULE PO SCH (13:00)
[2019-10-22] MEDS ORDERED: ERGOCALCIFEROL (VITAMIN D2) 50,000 UNIT CAPSULE PO ONE (14:00)
[2019-10-22] MEDS ORDERED: ASCORBIC ACID 500 MG TAB PO SCH (14:00)
[2019-10-22] MEDS ORDERED: ALBUMIN (HUMAN) 25% 200 ML IV ONE (14:00)
[2019-10-22] MEDS ORDERED: HYDROCHLOROTHIAZIDE 25 MG TABLET PO SCH (14:15)
[2019-10-22] MEDS ORDERED: LOSARTAN 50 MG TABLET PO SCH (14:15)
[2019-10-22 16:32] VITALS: BP 129/73
--- NOTE | 2019-10-22 16:32 | NUR ---
cm note met with patient and states resides at home alone independent with ambulation, has o2 concentrator and portable. dc plan is for home at time of dc. pt states she uses [facility] in [place], [place] for meds. Addendum: 10/22/19 at 1638 by PERLITA CHANCE CM Amended: Links added.
--- NOTE | 2019-10-22 17:31 | NUR ---
cm note spoke to gold at [facility] [place], [place] [phone], and states elivalorie requires prior authorization and provided the [phone] prior auth line, to obtain prior auth. call made to prior auth line and spoke to Ghulam Flores, and was able to provide approval case # [id number] for Abbe. pt updated with this information and informed that per [facility] copay for med is $30. pt in agreement.
[2019-10-22] MEDS: CARVEDILOL 12.5 MG TABLET PO SCH (20:20)
[2019-10-22 21:33] VITALS: BP 121/62
[2019-10-22] MEDS: CEFTRIAXONE SODIUM 1 GM IVP SCH (21:50)
[2019-10-23 00:33] VITALS: BP 137/85
[2019-10-23 04:42] LABS: BASOPHILS % (AUTO) 0.6 % (0.0-5.0); EOSINOPHILS % (AUTO) 1.5 % (0.0-8.0); HEMATOCRIT 35.7 % (36-48); MEAN CORPUSCULAR HEMOGLOBIN 26.3 pg (27.0-33.0); MEAN CORPUSCULAR HGB CONC 32.2 g/dL (32.0-36.0); MEAN CORPUSCULAR VOLUME 81.7 fL (79-99); MONOCYTES % (AUTO) 7.2 % (3.0-13.0); PLATELET COUNT (AUTO) 215 K/uL (130-400); RED BLOOD CELL COUNT(AUTO) 4.37 MIL/uL (4.00-5.50); RED CELL DISTRIBUTION WIDTH 16.4 % (11.0-15.5); WHITE BLOOD COUNT (AUTO) 5.4 K/uL (4.8-10.8)
[2019-10-23 04:52] VITALS: BP 158/90
[2019-10-23 04:56] LABS: ALBUMIN 3.4 g/dL (3.5-5.0); BILIRUBIN,TOTAL 0.5 mg/dL (0.2-1.0); CREATININE 0.9 mg/dL (0.5-1.5); POTASSIUM 3.4 mmol/L (3.5-5.1); TOTAL PROTEIN, SERUM 6.9 g/dL (6.0-8.3)
[2019-10-23 08:01] VITALS: BP 166/92
[2019-10-23 08:40] LABS: PARTIAL THROMBOPLASTIN TIME 31.7 SEC (26.3-35.5); PROTHROMBIN TIME 10.8 SEC (9.6-11.6)
[2019-10-23 08:58] VITALS: BP 158/70
[2019-10-23] MEDS ORDERED: NON-FORMULARY MEDICATION 1 EACH (Losartan/Hydrochlorothiazide (Losartan-Hctz 100-12.5 mg T PO SCH (09:00)
[2019-10-23] MEDS: HYDROCHLOROTHIAZIDE 25 MG TABLET PO SCH (09:01)
[2019-10-23] MEDS: CARVEDILOL 12.5 MG TABLET PO SCH ×2 (09:02→21:34)
[2019-10-23] MEDS: ASCORBIC ACID 500 MG TAB PO SCH (09:02)
[2019-10-23] MEDS: ASPIRIN 81MG TAB.CHEW PO SCH (09:02)
[2019-10-23] MEDS: LOSARTAN 50 MG TABLET PO SCH (09:03)
[2019-10-23] MEDS: ENOXAPARIN SODIUM 120 MG/0.8ML SQ SCH ×2 (09:04→21:35)
[2019-10-23] MEDS ORDERED: ZINC SULFATE 220 CAPSULE ONE (10:48)
[2019-10-23 11:41] VITALS: BP 136/91
[2019-10-23] MEDS: ZINC SULFATE 220 CAPSULE PO SCH (11:47)
--- NOTE | 2019-10-23 13:25 | NUR ---
Covid PCR negative, notified CT of VQ scan order; awaiting video game technician call back.
--- NOTE | 2019-10-23 16:34 | NUR ---
Cherrie RN report for Rm 321, [employer] tech to transfer patient after scan. Belongings will be transferred as well, nad noted, vss.
[2019-10-23 21:12] VITALS: BP 131/81
[2019-10-23] MEDS: CEFTRIAXONE SODIUM 1 GM IVP SCH (21:35)
[2019-10-24] VITALS (7 sets, daily range): BP systolic 95–152; BP diastolic 58–93
[2019-10-24] MEDS: HYDROCHLOROTHIAZIDE 25 MG TABLET PO SCH (09:52)
[2019-10-24] MEDS: LOSARTAN 50 MG TABLET PO SCH (09:52)
[2019-10-24] MEDS: ASCORBIC ACID 500 MG TAB PO SCH (09:52)
[2019-10-24] MEDS: ENOXAPARIN SODIUM 120 MG/0.8ML SQ SCH (09:52)
[2019-10-24] MEDS: ASPIRIN 81MG TAB.CHEW PO SCH (09:54)
[2019-10-24] MEDS: CARVEDILOL 12.5 MG TABLET PO SCH ×2 (09:54→20:09)
[2019-10-24] MEDS: ZINC SULFATE 220 CAPSULE PO SCH (12:16)
[2019-10-24] MEDS: APIXABAN 5 MG TABLET PO SCH (20:08)
[2019-10-24] MEDS: CEFTRIAXONE SODIUM 1 GM IVP SCH (22:22)
[2019-10-25 03:43] VITALS: BP 110/72
[2019-10-25 07:15] VITALS: BP 159/88
[2019-10-25] MEDS ORDERED: APIX5TAB PO (07:16)
[2019-10-25] MEDS: APIXABAN 5 MG TABLET PO SCH (07:56)
--- NOTE | 2019-10-25 14:36 | NUR ---
CM NOTE/ELIQUIS REQUEST FOR PRIOR AUTHORIZATION GIVEN TO ME REQUESTING SIGNATURE. SIGNATURE OBTAINED, FORMS FILLED OUT AND FAXED TO [facility] AT . CALLED [employer] NUMBER AT AND CONFIRMED WITH MARGARITO THAT ELIQUIS HAS BEEN APPROVED AND DISPENSED MEDICATION TO PATIENT ORDERED BY .
== END 2019-10-25 08:50 | disposition home or self-care (01) | DRG 299 ==
LOC: EDH 16:39 → EDHIP 21:00 → OBSVTOIN 21:00 → 2DH 10-22 00:16 → 3DH 10-23 17:27
PROVIDERS: ADMIT Internal Medicine; ATTEND Internal Medicine
DX: I82.412 Acute embolism and thrombosis of left femoral vein (principal); I26.99 Other pulmonary embolism without acute cor pulmonale; J96.20 Acute and chronic respiratory failure, unspecified whether with hypoxia or hypercapnia; Z68.43 Body mass index [BMI] 50.0-59.9, adult; I50.9 Heart failure, unspecified; I11.0 Hypertensive heart disease with heart failure; E66.01 Morbid (severe) obesity due to excess calories; Z20.828 Contact with and (suspected) exposure to other viral communicable diseases; E11.9 Type 2 diabetes mellitus without complications; Z88.8 Allergy status to other drugs, medicaments and biological substances; Z91.013 Allergy to seafood; Z86.011 Personal history of benign neoplasm of the brain; Z86.19 Personal history of other infectious and parasitic diseases; Z98.84 Bariatric surgery status
CPT/HCPCS: 36415; 71045; 78582; 80048; 80053; 80076; 82550; 83880; 84484; 85025; 85027; 85378; 85610; 85730; 93005; 93970; A9540; A9558; G0378; J0696; J1650; J1940; P9046; U0003

== ENCOUNTER → 2019-11-15 | Outpatient (CLI) | payer OTHER ==
[~2019-11-15] MED LIST changes: +APIX5TAB PO; +ASPI-1005 PO; -ASPI-1012 PO; -DEXA6TAB PO; -DOXY100T2 PO; -GUAI5SYR PO; -METH4TAB3 PO
== END | disposition home or self-care (01) ==
LOC: RAH 14:39
PROVIDERS: ATTEND Internal Medicine
DX: J45.991 Cough variant asthma (principal); J45.909 Unspecified asthma, uncomplicated; M47.816 Spondylosis without myelopathy or radiculopathy, lumbar region
CPT/HCPCS: 71046

== ENCOUNTER → 2020-01-19 | Outpatient (CLI) | payer OTHER ==
[2020-01-19 16:42] LABS: BASOPHILS % (AUTO) 0.2 % (0.0-5.0); HEMATOCRIT 40.7 % (36-48); MEAN CORPUSCULAR HEMOGLOBIN 25.9 pg (27.0-33.0); MEAN CORPUSCULAR HGB CONC 31.2 g/dL (32.0-36.0); MEAN CORPUSCULAR VOLUME 82.9 fL (79-99); MONOCYTES % (AUTO) 5.6 % (3.0-13.0); NEUTROPHILS % (AUTO) 84.7 % (40.0-77.0); PLATELET COUNT (AUTO) 265 K/uL (130-400); RED BLOOD CELL COUNT(AUTO) 4.91 MIL/uL (4.00-5.50); RED CELL DISTRIBUTION WIDTH 13.5 % (11.0-15.5); WHITE BLOOD COUNT (AUTO) 16.9 K/uL (4.8-10.8)
[2020-01-19 17:04] LABS: ALBUMIN 3.5 g/dL (3.5-5.0); BILIRUBIN,TOTAL 0.2 mg/dL (0.2-1.0); CREATININE 1.2 mg/dL (0.5-1.5); CRP QUANTITATIVE 14.9 mg/L (0.00-9.0); POTASSIUM 3.9 mmol/L (3.5-5.1); THYROID STIMULATING HORMONE 1.63 uIU/mL (0.36-3.74); TOTAL PROTEIN, SERUM 8.1 g/dL (6.0-8.3)
[2020-01-19 17:28] LABS: B-TYPE NATRIURETIC PEPTIDE 16 pg/mL (0-100)
[2020-01-19 17:48] LABS: ERYTHROCYTE SEDIMENTATION RATE 22 MM/HR (0-20)
== END | disposition home or self-care (01) ==
LOC: LAB 15:55
PROVIDERS: ATTEND Internal Medicine
DX: I87.309 Chronic venous hypertension (idiopathic) without complications of unspecified lower extremity (principal)
CPT/HCPCS: 36415; 80053; 83880; 84443; 85025; 85651; 86140

== ENCOUNTER → 2020-01-28 | Outpatient (CLI) | payer OTHER ==
[2020-01-28 12:37] LABS: BASOPHILS % (AUTO) 0.4 % (0.0-5.0); EOSINOPHILS % (AUTO) 1.2 % (0.0-8.0); HEMATOCRIT 41.4 % (36-48); LYMPHOCYTES % (AUTO) 23.4 % (21.0-51.0); MEAN CORPUSCULAR HEMOGLOBIN 25.7 pg (27.0-33.0); MEAN CORPUSCULAR HGB CONC 31.4 g/dL (32.0-36.0); MEAN CORPUSCULAR VOLUME 81.8 fL (79-99); MONOCYTES % (AUTO) 6.1 % (3.0-13.0); NEUTROPHILS % (AUTO) 68.7 % (40.0-77.0); PLATELET COUNT (AUTO) 225 K/uL (130-400); RED BLOOD CELL COUNT(AUTO) 5.06 MIL/uL (4.00-5.50); RED CELL DISTRIBUTION WIDTH 13.2 % (11.0-15.5); WHITE BLOOD COUNT (AUTO) 8.5 K/uL (4.8-10.8)
== END | disposition home or self-care (01) ==
LOC: LAB 11:46
PROVIDERS: ATTEND Internal Medicine
DX: I87.309 Chronic venous hypertension (idiopathic) without complications of unspecified lower extremity (principal); M05.9 Rheumatoid arthritis with rheumatoid factor, unspecified; J45.909 Unspecified asthma, uncomplicated
CPT/HCPCS: 36415; 85025

== ENCOUNTER → 2020-02-21 | Outpatient (CLI) | payer OTHER ==
[~2020-02-21] MED LIST changes: +GADODIAMIDE 10 MMOL/20 ML VIAL IV ONE
[2020-02-21 03:16] LABS: POTASSIUM 3.8 mmol/L (3.5-5.1)
[2020-02-21 03:21] LABS: ALBUMIN 3.5 g/dL (3.5-5.0); BILIRUBIN,TOTAL 0.2 mg/dL (0.2-1.0); TOTAL PROTEIN, SERUM 7.4 g/dL (6.0-8.3)
== END | disposition home or self-care (01) ==
LOC: RAH 02:28
PROVIDERS: ATTEND Internal Medicine
DX: R22.0 Localized swelling, mass and lump, head (principal); Z98.890 Other specified postprocedural states
CPT/HCPCS: 36415; 70553; 80053; A9579

== ENCOUNTER → 2020-05-15 | Outpatient (CLI) | payer OTHER ==
[~2020-05-15] MED LIST changes: -GADODIAMIDE 10 MMOL/20 ML VIAL IV ONE
[2020-05-15 08:00] LABS: BASOPHILS % (AUTO) 0.5 % (0.0-5.0); EOSINOPHILS % (AUTO) 1.7 % (0.0-8.0); HEMATOCRIT 40.2 % (36-48); LYMPHOCYTES % (AUTO) 25.1 % (21.0-51.0); MEAN CORPUSCULAR HEMOGLOBIN 25.4 pg (27.0-33.0); MEAN CORPUSCULAR HGB CONC 30.8 g/dL (32.0-36.0); MEAN CORPUSCULAR VOLUME 82.2 fL (79-99); MONOCYTES % (AUTO) 5.6 % (3.0-13.0); NEUTROPHILS % (AUTO) 66.8 % (40.0-77.0); PLATELET COUNT (AUTO) 225 K/uL (130-400); RED BLOOD CELL COUNT(AUTO) 4.89 MIL/uL (4.00-5.50); RED CELL DISTRIBUTION WIDTH 14.9 % (11.0-15.5); WHITE BLOOD COUNT (AUTO) 6.5 K/uL (4.8-10.8)
[2020-05-15 08:15] LABS: HEMOGLOBIN A1C 7.3 % (4.0-6.0)
[2020-05-15 08:28] LABS: B-TYPE NATRIURETIC PEPTIDE 5 pg/mL (0-100)
[2020-05-15 08:41] LABS: ALBUMIN 3.3 g/dL (3.5-5.0); BILIRUBIN,TOTAL 0.4 mg/dL (0.2-1.0); CREATININE 0.9 mg/dL (0.5-1.5); CRP QUANTITATIVE 13.2 mg/L (0.00-9.0); THYROID STIMULATING HORMONE 3.85 uIU/mL (0.36-3.74); TOTAL PROTEIN, SERUM 7.7 g/dL (6.0-8.3)
[2020-05-15 09:10] LABS: ERYTHROCYTE SEDIMENTATION RATE 19 MM/HR (0-20)
== END | disposition home or self-care (01) ==
LOC: LAB 06:59
PROVIDERS: ATTEND Internal Medicine
DX: M06.9 Rheumatoid arthritis, unspecified (principal); I10 Essential (primary) hypertension; F43.9 Reaction to severe stress, unspecified; J01.90 Acute sinusitis, unspecified
CPT/HCPCS: 36415; 80053; 80061; 82306; 82607; 83036; 83880; 84443; 85025; 85651; 86140; 86431

== ENCOUNTER 2020-07-10 10:48 | Emergency (ER) | payer OTHER ==
[2020-07-10] MEDS ORDERED: DEXAMETHASONE SOD PHOSPHATE 10MG/ML 1ML VIAL ONE (12:01)
[2020-07-10] MEDS ORDERED: AMOXICILLIN/POTASSIUM CLAV 875-125 TABLET PO ONE (12:01)
[2020-07-10] MEDS ORDERED: DIPHENHYDRAMINE HCL 25 MG CAPSULE ONE (12:02)
[2020-07-10] MEDS ORDERED: ACETAMINOPHEN-CODEINE 300/30MG TAB ONE ×2 (12:02→12:06)
== END 2020-07-10 12:40 | disposition home or self-care (01) ==
LOC: EDH 10:48
DX: J01.10 Acute frontal sinusitis, unspecified (principal); I10 Essential (primary) hypertension; E11.9 Type 2 diabetes mellitus without complications; Z90.710 Acquired absence of both cervix and uterus; Z91.041 Radiographic dye allergy status; Z91.040 Latex allergy status; Z88.1 Allergy status to other antibiotic agents; Z91.013 Allergy to seafood; Z98.890 Other specified postprocedural states
CPT/HCPCS: 71045; 96372; 99284; J1100; Q0163

== ENCOUNTER 2020-09-01 15:57 | Emergency (ER) | payer OTHER ==
[~2020-09-01] VITALS: Ht 152.4 cm; Wt 135.2 kg
[2020-09-01 16:03] VITALS: BP 179/106
[2020-09-01 16:42] LABS: APPEARANCE,URINE Clear (CLEAR); BILIRUBIN,URINE Negative (NEGATIVE); COLOR,URINE Yellow (YELLOW); GLUCOSE, URINE (UA) Negative (NEGATIVE); KETONES,URINE Negative (NEGATIVE); LEUKOCYTE ESTERASE ,URINE Negative (NEGATIVE); NITRATE,URINE Negative (NEGATIVE); OCCULT BLOOD,URINE Negative (NEGATIVE); PH,URINE 5.5 (5.0-8.0); PROTEIN,URINE POS 1+ mg/dL (NEGATIVE); UROBILINOGEN,URINE 0.2 mg/dL (0.2-1.0)
[2020-09-01 16:51] LABS: BACTERIA,URINE Rare /HPF (None Seen); RBC,URINE 0-1 /HPF (0-1); SQUAMOUS EPITHELIAL CELL,UR Rare /HPF (0-2); WBC,URINE 0-1 /HPF (0-1); YEAST,URINE BUDDING Rare /HPF (None Seen)
== END 2020-09-01 21:02 | disposition home or self-care (01) ==
LOC: EDH 15:57
DX: J02.9 Acute pharyngitis, unspecified (principal); R30.0 Dysuria; I10 Essential (primary) hypertension; E11.9 Type 2 diabetes mellitus without complications; M06.9 Rheumatoid arthritis, unspecified; G62.9 Polyneuropathy, unspecified; Z20.822 Contact with and (suspected) exposure to COVID-19; Z90.710 Acquired absence of both cervix and uterus; Z90.49 Acquired absence of other specified parts of digestive tract; Z98.890 Other specified postprocedural states; Z91.013 Allergy to seafood; Z88.1 Allergy status to other antibiotic agents; Z79.82 Long term (current) use of aspirin; Z79.899 Other long term (current) drug therapy
CPT/HCPCS: 81001; 87635; 87807; 87880; 99283; C9803

== ENCOUNTER 2021-02-27 13:02 | Emergency (ER) | payer OTHER ==
[~2021-02-27] VITALS: Ht 152.4 cm; Wt 136.1 kg
[2021-02-27] MEDS ORDERED: IPRATROPIUM/ALBUTEROL SULFATE 3 ML SOLUTION IH PRN (14:30)
[2021-02-27] MEDS ORDERED: CEFTRIAXONE 1G VIAL IV ONE (14:30)
[2021-02-27] MEDS ORDERED: DiphenhydrAMINE HCL 50 MG/ML VIAL IV ONE (14:30)
[2021-02-27] MEDS ORDERED: 0.9%NACL 1000ML 500 ML IV ONE (14:30)
[2021-02-27] MEDS ORDERED: METOCLOPRAMIDE 10 MG/2 ML VIAL IVP ONE (14:30)
[2021-02-27 15:02] LABS: BASOPHILS % (AUTO) 0.3 % (0.0-5.0); EOSINOPHILS % (AUTO) 0.8 % (0.0-8.0); HEMATOCRIT 39.9 % (36-48); MEAN CORPUSCULAR HEMOGLOBIN 25.4 pg (27.0-33.0); MEAN CORPUSCULAR HGB CONC 32.1 g/dL (32.0-36.0); MEAN CORPUSCULAR VOLUME 79.3 fL (79-99); MONOCYTES % (AUTO) 11.6 % (3.0-13.0); NEUTROPHILS % (AUTO) 68.5 % (40.0-77.0); PLATELET COUNT (AUTO) 204 K/uL (130-400); RED BLOOD CELL COUNT(AUTO) 5.03 MIL/uL (4.00-5.50); RED CELL DISTRIBUTION WIDTH 14.1 % (11.0-15.5); WHITE BLOOD COUNT (AUTO) 6.1 K/uL (4.8-10.8)
[2021-02-27 15:17] LABS: CREATININE 0.9 mg/dL (0.5-1.5); POTASSIUM 4.2 mmol/L (3.5-5.1)
[2021-02-27 15:22] LABS: ALBUMIN 3.4 g/dL (3.5-5.0); BILIRUBIN,TOTAL 0.3 mg/dL (0.2-1.0); TOTAL PROTEIN, SERUM 7.9 g/dL (6.0-8.3)
[2021-02-27] MEDS ORDERED: DEXA6TAB7 PO (16:52)
[2021-02-27] MEDS ORDERED: DIPH25 PO (16:52)
[2021-02-27] MEDS ORDERED: IVER3TAB PO (16:52)
[2021-02-27] MEDS ORDERED: METO10TA41 PO (16:52)
[2021-02-27] MEDS ORDERED: ALBU90AE2 IH (16:52)
[2021-02-27] MEDS ORDERED: ACET-66 PO (16:52)
[2021-02-27] MEDS ORDERED: AZIT500T4 PO (16:52)
[2021-02-27] MEDS ORDERED: BENZ-39 PO (16:52)
[2021-02-27 16:59] VITALS: BP 141/87
== END 2021-02-27 17:34 | disposition home or self-care (01) ==
LOC: EDH 13:02
DX: U07.1 COVID-19 (principal); I10 Essential (primary) hypertension; E11.42 Type 2 diabetes mellitus with diabetic polyneuropathy; M06.9 Rheumatoid arthritis, unspecified; Z91.013 Allergy to seafood; Z79.899 Other long term (current) drug therapy; Z88.1 Allergy status to other antibiotic agents; Z90.710 Acquired absence of both cervix and uterus
CPT/HCPCS: 36415; 71045; 80053; 84484; 85025; 87635; 87804 ×2; 87880; 96361; 96374; 96375; 99284; C9803; J0696; J1200; J2765; J7030

== ENCOUNTER 2021-03-10 13:11 | Emergency (ER) | payer OTHER ==
[~2021-03-10] VITALS: Ht 152.4 cm; Wt 136.1 kg
[~2021-03-10 13:11] MED LIST changes: +ACET-66 PO; +ALBU90AE2 IH; +AZIT500T4 PO; +BENZ-39 PO; +DEXA6TAB7 PO; +DIPH25 PO; +IVER3TAB PO; +METO10TA41 PO
[2021-03-10] MEDS ORDERED: ONDANSETRON 4MG INJ ONE (13:25)
[2021-03-10] MEDS ORDERED: PANTOPRAZOLE 40 MG/VIAL ONE (13:25)
[2021-03-10 13:30] LABS: BASOPHILS % (AUTO) 0.2 % (0.0-5.0); EOSINOPHILS % (AUTO) 2.3 % (0.0-8.0); HEMATOCRIT 40.1 % (36-48); LYMPHOCYTES % (AUTO) 24.8 % (21.0-51.0); MEAN CORPUSCULAR HEMOGLOBIN 25.5 pg (27.0-33.0); MEAN CORPUSCULAR HGB CONC 31.2 g/dL (32.0-36.0); MEAN CORPUSCULAR VOLUME 81.8 fL (79-99); MONOCYTES % (AUTO) 5.9 % (3.0-13.0); NEUTROPHILS % (AUTO) 66.3 % (40.0-77.0); PLATELET COUNT (AUTO) 225 K/uL (130-400); RED CELL DISTRIBUTION WIDTH 14.4 % (11.0-15.5); WHITE BLOOD COUNT (AUTO) 8.7 K/uL (4.8-10.8)
[2021-03-10] MEDS ORDERED: PANTOPRAZOLE 40 MG/VIAL IVP ONE (13:30)
[2021-03-10] MEDS ORDERED: LACTATED RINGERS 1000ML 1,000 ML IV ONE (13:30)
[2021-03-10] MEDS ORDERED: ONDANSETRON 4MG INJ IVP ONE (13:30)
[2021-03-10 13:48] LABS: POTASSIUM 4.3 mmol/L (3.5-5.1)
[2021-03-10 13:57] LABS: ALBUMIN 3.2 g/dL (3.5-5.0); BILIRUBIN,TOTAL 0.2 mg/dL (0.2-1.0); TOTAL PROTEIN, SERUM 7.4 g/dL (6.0-8.3)
[2021-03-10] MEDS ORDERED: LIDOCAINE HCL 2% VISCOUS 15 ML UDCUP ONE (14:20)
[2021-03-10] MEDS ORDERED: MAG/ALUM/SIMETH 30 ML UDCUP ONE (14:20)
[2021-03-10] MEDS ORDERED: DICYCLOMINE HCL 10 MG/5 ML ML PO ONE ×2 (14:20→14:30)
[2021-03-10] MEDS ORDERED: LIDOCAINE HCL 2% VISCOUS 15 ML UDCUP PO ONE (14:30)
[2021-03-10] MEDS ORDERED: MAG/ALUM/SIMETH 30 ML UDCUP PO ONE (14:30)
[2021-03-10] MEDS ORDERED: PANT40SU PO (17:04)
[2021-03-10 17:19] LABS: APPEARANCE,URINE Clear (CLEAR); BILIRUBIN,URINE Negative (NEGATIVE); COLOR,URINE Yellow (YELLOW); GLUCOSE, URINE (UA) Negative (NEGATIVE); KETONES,URINE Negative (NEGATIVE); LEUKOCYTE ESTERASE ,URINE Negative (NEGATIVE); NITRATE,URINE Negative (NEGATIVE); OCCULT BLOOD,URINE Nonhemolyzed Trace (NEGATIVE); PH,URINE 7.5 (5.0-8.0); PROTEIN,URINE Negative (NEGATIVE)
[2021-03-10 17:25] LABS: BACTERIA,URINE None Seen /HPF (None Seen); RBC,URINE 0-1 /HPF (0-1); SQUAMOUS EPITHELIAL CELL,UR 0-2 /HPF (0-2); WBC,URINE None Seen /HPF (0-1)
[2021-03-10 17:34] VITALS: BP 149/93
== END 2021-03-10 18:06 | disposition home or self-care (01) ==
LOC: EDH 13:11
DX: K85.90 Acute pancreatitis without necrosis or infection, unspecified (principal); I10 Essential (primary) hypertension; E11.9 Type 2 diabetes mellitus without complications; M06.9 Rheumatoid arthritis, unspecified; E11.42 Type 2 diabetes mellitus with diabetic polyneuropathy; Z90.710 Acquired absence of both cervix and uterus; Z98.890 Other specified postprocedural states; Z79.82 Long term (current) use of aspirin; Z79.899 Other long term (current) drug therapy; Z88.1 Allergy status to other antibiotic agents; Z91.013 Allergy to seafood; Z88.8 Allergy status to other drugs, medicaments and biological substances
CPT/HCPCS: 36415; 74150; 80053; 81001; 82150; 82550; 83690 ×2; 84484; 84702; 85025; 93005; 96361; 96374; 96375; 99285; C9113; J2405

== ENCOUNTER → 2021-04-25 | Outpatient (CLI) | payer OTHER ==
[~2021-04-25] MED LIST changes: +PANT40SU PO
[2021-04-25 08:01] LABS: BASOPHILS % (AUTO) 0.5 % (0.0-5.0); EOSINOPHILS % (AUTO) 1.9 % (0.0-8.0); HEMATOCRIT 40.9 % (36-48); LYMPHOCYTES % (AUTO) 21.1 % (21.0-51.0); MEAN CORPUSCULAR HEMOGLOBIN 25.3 pg (27.0-33.0); MEAN CORPUSCULAR HGB CONC 31.3 g/dL (32.0-36.0); MEAN CORPUSCULAR VOLUME 80.8 fL (79-99); MONOCYTES % (AUTO) 5.5 % (3.0-13.0); NEUTROPHILS % (AUTO) 70.7 % (40.0-77.0); PLATELET COUNT (AUTO) 220 K/uL (130-400); RED BLOOD CELL COUNT(AUTO) 5.06 MIL/uL (4.00-5.50); RED CELL DISTRIBUTION WIDTH 14.3 % (11.0-15.5); WHITE BLOOD COUNT (AUTO) 6.2 K/uL (4.8-10.8)
[2021-04-25 08:44] LABS: ALBUMIN 3.5 g/dL (3.5-5.0); BILIRUBIN,DIRECT 0.1 mg/dL (0.0-0.3); BILIRUBIN,TOTAL 0.3 mg/dL (0.2-1.0); CREATININE 0.9 mg/dL (0.5-1.5); CRP QUANTITATIVE 6.8 mg/L (0.00-9.0); POTASSIUM 3.9 mmol/L (3.5-5.1); THYROID STIMULATING HORMONE 3.28 uIU/mL (0.36-3.74); TOTAL PROTEIN, SERUM 7.8 g/dL (6.0-8.3)
[2021-04-25 09:09] LABS: ERYTHROCYTE SEDIMENTATION RATE 21 MM/HR (0-20)
== END | disposition home or self-care (01) ==
LOC: LAB 07:37
PROVIDERS: ATTEND Internal Medicine
DX: E11.42 Type 2 diabetes mellitus with diabetic polyneuropathy (principal); E26.1 Secondary hyperaldosteronism; G47.26 Circadian rhythm sleep disorder, shift work type; E66.2 Morbid (severe) obesity with alveolar hypoventilation
CPT/HCPCS: 36415; 80053; 80061; 80076; 82043; 82248; 82306; 82607; 83036; 84443; 85025; 85651; 86140

== ENCOUNTER → 2021-04-27 | Outpatient (CLI) | payer OTHER ==
[~2021-04-27] MED LIST changes: +GADOTERATE MEGLUMINE 10 MMOL/20 ML VIAL IV ONE
== END | disposition home or self-care (01) ==
LOC: RAH 10:00
PROVIDERS: ATTEND Internal Medicine
DX: J34.89 Other specified disorders of nose and nasal sinuses (principal); M05.771 Rheumatoid arthritis with rheumatoid factor of right ankle and foot without organ or systems involvement; M24.9 Joint derangement, unspecified; R22.0 Localized swelling, mass and lump, head; S46.009A Unspecified injury of muscle(s) and tendon(s) of the rotator cuff of unspecified shoulder, initial encounter; X58.XXXA Exposure to other specified factors, initial encounter; Y93.89 Activity, other specified; Y92.89 Other specified places as the place of occurrence of the external cause; Y99.8 Other external cause status
CPT/HCPCS: 70553; A9575

== ENCOUNTER 2021-05-25 12:22 | Inpatient (IN) | payer OTHER ==
[~2021-05-25] VITALS: Ht 152.4 cm; Wt 142.8 kg
[~2021-05-25 12:22] MED LIST changes: -GADOTERATE MEGLUMINE 10 MMOL/20 ML VIAL IV ONE
[2021-05-25 12:55] LABS: BASOPHILS % (AUTO) 0.6 % (0.0-5.0); EOSINOPHILS % (AUTO) 2.1 % (0.0-8.0); HEMATOCRIT 41.1 % (36-48); LYMPHOCYTES % (AUTO) 25.1 % (21.0-51.0); MEAN CORPUSCULAR HGB CONC 31.4 g/dL (32.0-36.0); MEAN CORPUSCULAR VOLUME 79.5 fL (79-99); MONOCYTES % (AUTO) 6.6 % (3.0-13.0); NEUTROPHILS % (AUTO) 65.4 % (40.0-77.0); PLATELET COUNT (AUTO) 208 K/uL (130-400); RED BLOOD CELL COUNT(AUTO) 5.17 MIL/uL (4.00-5.50); RED CELL DISTRIBUTION WIDTH 13.8 % (11.0-15.5); WHITE BLOOD COUNT (AUTO) 6.7 K/uL (4.8-10.8)
[2021-05-25] MEDS ORDERED: 0.9%NACL 1000ML 1,000 ML IV ONE (13:00)
[2021-05-25 13:03] LABS: CREATININE 0.8 mg/dL (0.5-1.5); POTASSIUM 3.6 mmol/L (3.5-5.1)
[2021-05-25 13:04] LABS: PROTHROMBIN TIME 10.9 SEC (9.6-11.6)
[2021-05-25 13:05] LABS: PARTIAL THROMBOPLASTIN TIME 27.9 SEC (26.3-35.5)
[2021-05-25 13:07] LABS: ALBUMIN 3.5 g/dL (3.5-5.0); BILIRUBIN,TOTAL 0.3 mg/dL (0.2-1.0); TOTAL PROTEIN, SERUM 7.9 g/dL (6.0-8.3)
[2021-05-25 13:14] LABS: APPEARANCE,URINE Clear (CLEAR); BILIRUBIN,URINE Negative (NEGATIVE); COLOR,URINE Yellow (YELLOW); GLUCOSE, URINE (UA) Negative (NEGATIVE); KETONES,URINE Negative (NEGATIVE); LEUKOCYTE ESTERASE ,URINE Negative (NEGATIVE); NITRATE,URINE Negative (NEGATIVE); OCCULT BLOOD,URINE Negative (NEGATIVE); PROTEIN,URINE Negative (NEGATIVE); UROBILINOGEN,URINE 0.2 mg/dL (0.2-1.0)
[2021-05-25] MEDS ORDERED: ASPIRIN 81MG CHEW TAB ONE (16:47)
[2021-05-25] MEDS ORDERED: ASPIRIN 81MG CHEW TAB PO ONE (17:00)
[2021-05-25] MEDS ORDERED: LABETALOL 20MG SYG IV ONE (18:00)
[2021-05-25] MEDS: 1/2 NS 1000ML 1,000 ML IV SCH (19:20)
[2021-05-25] MEDS: CARVEDILOL 12.5 MG TABLET PO SCH (21:04)
[2021-05-25] MEDS ORDERED: LABETALOL 20MG SYG IV PRN (21:30)
[2021-05-25 23:30] VITALS: BP 155/92
[2021-05-26 04:06] VITALS: BP 141/72
[2021-05-26] MEDS ORDERED: AMLO-257 PO (05:47)
[2021-05-26] MEDS ORDERED: SEMA1PEN3 SQ (06:03)
[2021-05-26] MEDS: 1/2 NS 1000ML 1,000 ML IV SCH ×2 (06:23→19:57)
[2021-05-26 08:01] VITALS: BP 163/105
[2021-05-26] MEDS ORDERED: IBUPROFEN 800 MG TAB PO ONE (09:00)
[2021-05-26] MEDS: ASPIRIN 325MG TAB PO SCH (09:05)
[2021-05-26] MEDS: AMLODIPINE 5 MG TAB PO SCH (09:05)
[2021-05-26] MEDS: CARVEDILOL 12.5 MG TABLET PO SCH ×2 (09:06→20:15)
[2021-05-26 11:50] VITALS: BP 146/74
[2021-05-26 16:46] VITALS: BP 156/85
[2021-05-26 19:13] VITALS: BP 158/88
[2021-05-26 23:24] VITALS: BP 163/84
[2021-05-27] VITALS (7 sets, daily range): BP systolic 140–170; BP diastolic 77–107
[2021-05-27] MEDS: ASPIRIN 325MG TAB PO SCH (08:47)
[2021-05-27] MEDS: CARVEDILOL 12.5 MG TABLET PO SCH ×2 (08:48→21:04)
[2021-05-27] MEDS: AMLODIPINE 5 MG TAB PO SCH (11:56)
[2021-05-28 03:51] VITALS: BP 143/97
[2021-05-28] MEDS: CARVEDILOL 12.5 MG TABLET PO SCH (07:21)
[2021-05-28] MEDS: ASPIRIN 325MG TAB PO SCH (07:21)
[2021-05-28] MEDS: AMLODIPINE 5 MG TAB PO SCH (07:21)
[2021-05-28 08:00] VITALS: BP 164/93
[2021-05-28 12:00] VITALS: BP 162/93
== END 2021-05-28 13:45 | disposition home or self-care (01) | DRG 65 ==
LOC: EDH 12:22 → EDHIP 16:44 → 4DH 21:45
PROVIDERS: ADMIT Internal Medicine; ATTEND Internal Medicine
DX: I63.9 Cerebral infarction, unspecified (principal); Z68.44 Body mass index [BMI] 60.0-69.9, adult; M06.9 Rheumatoid arthritis, unspecified; G62.9 Polyneuropathy, unspecified; E11.9 Type 2 diabetes mellitus without complications; I10 Essential (primary) hypertension; Z90.49 Acquired absence of other specified parts of digestive tract; E66.01 Morbid (severe) obesity due to excess calories; R47.1 Dysarthria and anarthria; Z90.710 Acquired absence of both cervix and uterus; J45.909 Unspecified asthma, uncomplicated
CPT/HCPCS: 36415; 70450; 70544; 70547; 70551; 80053; 81003; 82948; 84484; 85025; 85610; 85730; 92522; 92610; 93005; 93306; 93356; 99291; G0378

== ENCOUNTER → 2021-10-11 | Outpatient (CLI) | payer OTHER ==
[~2021-10-11] MED LIST changes: -ACET-66 PO; -ALBU90AE2 IH; +AMLO-257 PO; -APIX5TAB PO; -ASCO500T20 PO; -ASPI-1005 PO; -AZIT500T4 PO; -BENZ-39 PO; -DEXA6TAB7 PO; -DIPH25 PO; -IVER3TAB PO; -LOSA1TAB42 PO; -METO10TA41 PO; -PANT40SU PO; +SEMA1PEN3 SQ; -ZINC220C6 PO
[2021-10-11 08:12] LABS: BASOPHILS % (AUTO) 0.5 % (0.0-5.0); EOSINOPHILS % (AUTO) 1.8 % (0.0-8.0); HEMATOCRIT 39.2 % (36-48); LYMPHOCYTES % (AUTO) 20.7 % (21.0-51.0); MEAN CORPUSCULAR HEMOGLOBIN 26.5 pg (27.0-33.0); MEAN CORPUSCULAR HGB CONC 32.9 g/dL (32.0-36.0); MEAN CORPUSCULAR VOLUME 80.7 fL (79-99); MONOCYTES % (AUTO) 4.4 % (3.0-13.0); NEUTROPHILS % (AUTO) 72.4 % (40.0-77.0); PLATELET COUNT (AUTO) 198 K/uL (130-400); RED BLOOD CELL COUNT(AUTO) 4.86 MIL/uL (4.00-5.50); RED CELL DISTRIBUTION WIDTH 13.9 % (11.0-15.5)
[2021-10-11 08:22] LABS: HEMOGLOBIN A1C 8.2 % (4.0-6.0)
[2021-10-11 08:52] LABS: ALBUMIN 3.4 g/dL (3.5-5.0); BILIRUBIN,DIRECT 0.2 mg/dL (0.0-0.3); CREATININE 0.9 mg/dL (0.5-1.5); CRP QUANTITATIVE 11.6 mg/L (0.00-9.0); THYROID STIMULATING HORMONE 3.01 uIU/mL (0.36-3.74); TOTAL PROTEIN, SERUM 7.7 g/dL (6.0-8.3)
[2021-10-11 09:15] LABS: ERYTHROCYTE SEDIMENTATION RATE 51 MM/HR (0-20)
[2021-10-11 15:56] LABS: APPEARANCE,URINE SL CLOUDY (CLEAR); BILIRUBIN,URINE SMALL (NEGATIVE); COLOR,URINE YELLOW (YELLOW); GLUCOSE, URINE (UA) NEGATIVE (NEGATIVE); KETONES,URINE 5 mg/dL (NEGATIVE); LEUKOCYTE ESTERASE ,URINE NEGATIVE (NEGATIVE); NITRATE,URINE NEGATIVE (NEGATIVE); OCCULT BLOOD,URINE NEGATIVE (NEGATIVE); PROTEIN,URINE 30 mg/dL (NEGATIVE); UROBILINOGEN,URINE 0.2 mg/dL (0.2-1.0)
[2021-10-11 16:17] LABS: BACTERIA,URINE Few /HPF (None Seen); MUCUS,URINE Few LPF (None Seen); RBC,URINE 0-1 /HPF (0-1); SQUAMOUS EPITHELIAL CELL,UR Few /HPF (0-2); WBC,URINE 0-1 /HPF (0-1)
== END | disposition home or self-care (01) ==
LOC: EDH 07:23
PROVIDERS: ATTEND Internal Medicine
DX: I11.0 Hypertensive heart disease with heart failure (principal); I50.9 Heart failure, unspecified; E11.42 Type 2 diabetes mellitus with diabetic polyneuropathy; R22.0 Localized swelling, mass and lump, head; R47.01 Aphasia
CPT/HCPCS: 36415; 80053; 80061; 81001; 82043; 82248; 82306; 82607; 83036; 84443; 85025; 85651; 86140

== ENCOUNTER → 2021-11-05 | Outpatient (CLI) | payer OTHER ==
[~2021-11-05] MED LIST changes: +GADOTERATE MEGLUMINE 10 MMOL/20 ML VIAL IV ONE
== END | disposition home or self-care (01) ==
LOC: RAH 07:13
PROVIDERS: ATTEND Internal Medicine
DX: R22.0 Localized swelling, mass and lump, head (principal); R47.01 Aphasia
CPT/HCPCS: 70553; A9575

== ENCOUNTER → 2022-02-25 | Outpatient (CLI) | payer OTHER ==
[~2022-02-25] MED LIST changes: -GADOTERATE MEGLUMINE 10 MMOL/20 ML VIAL IV ONE
[2022-02-25 09:29] LABS: BASOPHILS % (AUTO) 0.7 % (0.0-5.0); EOSINOPHILS % (AUTO) 1.4 % (0.0-8.0); HEMATOCRIT 39.5 % (36-48); LYMPHOCYTES % (AUTO) 23.2 % (21.0-51.0); MEAN CORPUSCULAR HEMOGLOBIN 25.9 pg (27.0-33.0); MEAN CORPUSCULAR HGB CONC 32.7 g/dL (32.0-36.0); MEAN CORPUSCULAR VOLUME 79.3 fL (79-99); MONOCYTES % (AUTO) 5.6 % (3.0-13.0); NEUTROPHILS % (AUTO) 68.8 % (40.0-77.0); PLATELET COUNT (AUTO) 229 K/uL (130-400); RED BLOOD CELL COUNT(AUTO) 4.98 MIL/uL (4.00-5.50); RED CELL DISTRIBUTION WIDTH 14.2 % (11.0-15.5); WHITE BLOOD COUNT (AUTO) 7.1 K/uL (4.8-10.8)
[2022-02-25 09:55] LABS: HEMOGLOBIN A1C 7.1 % (4.0-6.0)
[2022-02-25 10:07] LABS: ALBUMIN 3.6 g/dL (3.5-5.0); POTASSIUM 4.2 mmol/L (3.5-5.1); THYROID STIMULATING HORMONE 3.06 uIU/mL (0.36-3.74)
[2022-02-25 16:13] LABS: HEPATITIS A IGM ANTIBODY Non-Reactive (Nonreactive); HEPATITIS B CORE IGM ANTIBODY Non-Reactive (Negative); HEPATITIS B SURFACE ANTIGEN Non-Reactive (Nonreactive); HEPATITIS C ANTIBODY Non-Reactive (Nonreactive)
== END | disposition home or self-care (01) ==
LOC: EDH 08:58
PROVIDERS: ATTEND Internal Medicine
DX: I10 Essential (primary) hypertension (principal); E11.42 Type 2 diabetes mellitus with diabetic polyneuropathy; R79.82 Elevated C-reactive protein (CRP)
CPT/HCPCS: 36415; 80053; 80061; 80074; 82607; 83036; 84443; 85025

== ENCOUNTER → 2022-06-05 | Outpatient (CLI) | payer OTHER | END | disposition home or self-care (01) | LOC: RAH 10:00 | PROVIDERS: ATTEND Internal Medicine Rheumatology | DX: M47.816 Spondylosis without myelopathy or radiculopathy, lumbar region (principal); M85.89 Other specified disorders of bone density and structure, multiple sites | CPT/HCPCS: 72100 ==

== ENCOUNTER 2022-07-12 08:05 | Emergency (ER) | payer OTHER ==
[~2022-07-12] VITALS: Ht 152.4 cm; Wt 135.2 kg
[2022-07-12 08:08] VITALS: BP 188/112
[2022-07-12] MEDS ORDERED: NAPR500T6 PO (08:32)
== END 2022-07-12 09:23 | disposition home or self-care (01) ==
LOC: EDH 08:05
DX: S80.02XA Contusion of left knee, initial encounter (principal); I10 Essential (primary) hypertension; E66.9 Obesity, unspecified; M06.9 Rheumatoid arthritis, unspecified; M17.12 Unilateral primary osteoarthritis, left knee; Z88.1 Allergy status to other antibiotic agents; Z91.013 Allergy to seafood; Z88.8 Allergy status to other drugs, medicaments and biological substances; W18.39XA Other fall on same level, initial encounter; Y93.89 Activity, other specified; Y92.89 Other specified places as the place of occurrence of the external cause; Y99.8 Other external cause status
CPT/HCPCS: 29505; 73562

== ENCOUNTER → 2022-08-06 | Outpatient (CLI) | payer OTHER ==
[~2022-08-06] MED LIST changes: +NAPR500T6 PO
[2022-08-06 10:34] LABS: BASOPHILS % (AUTO) 0.7 % (0.0-5.0); EOSINOPHILS % (AUTO) 1.3 % (0.0-8.0); HEMATOCRIT 39.4 % (36-48); LYMPHOCYTES % (AUTO) 21.6 % (21.0-51.0); MEAN CORPUSCULAR HEMOGLOBIN 25.4 pg (27.0-33.0); MEAN CORPUSCULAR HGB CONC 31.2 g/dL (32.0-36.0); MEAN CORPUSCULAR VOLUME 81.4 fL (79-99); MONOCYTES % (AUTO) 5.4 % (3.0-13.0); NEUTROPHILS % (AUTO) 70.7 % (40.0-77.0); PLATELET COUNT (AUTO) 225 K/uL (130-400); RED BLOOD CELL COUNT(AUTO) 4.84 MIL/uL (4.00-5.50); RED CELL DISTRIBUTION WIDTH 14.3 % (11.0-15.5)
[2022-08-06 10:45] LABS: HEMOGLOBIN A1C 6.6 % (4.0-6.0)
[2022-08-06 11:21] LABS: ALBUMIN 3.3 g/dL (3.5-5.0); BILIRUBIN,DIRECT 0.1 mg/dL (0.0-0.3); CREATININE 0.9 mg/dL (0.5-1.5); CRP QUANTITATIVE 13.5 mg/L (0.00-9.0); POTASSIUM 3.7 mmol/L (3.5-5.1); THYROID STIMULATING HORMONE 3.11 uIU/mL (0.36-3.74); TOTAL PROTEIN, SERUM 7.7 g/dL (6.0-8.3)
[2022-08-06 12:00] LABS: ERYTHROCYTE SEDIMENTATION RATE 50 MM/HR (0-30)
== END | disposition home or self-care (01) ==
LOC: LAB 07:58
PROVIDERS: ATTEND Internal Medicine
DX: Z13.29 Encounter for screening for other suspected endocrine disorder (principal); I10 Essential (primary) hypertension; E11.42 Type 2 diabetes mellitus with diabetic polyneuropathy; M05.771 Rheumatoid arthritis with rheumatoid factor of right ankle and foot without organ or systems involvement; M06.9 Rheumatoid arthritis, unspecified; M25.562 Pain in left knee; R26.81 Unsteadiness on feet; R47.01 Aphasia; W19.XXXA Unspecified fall, initial encounter; Y93.89 Activity, other specified; Y92.89 Other specified places as the place of occurrence of the external cause; Y99.8 Other external cause status
CPT/HCPCS: 36415; 80048; 80061; 80076; 82306; 82607; 83036; 84443; 85025; 85651; 86140

== ENCOUNTER → 2022-12-26 | Outpatient (CLI) | payer OTHER | END | disposition home or self-care (01) | LOC: RAH 08:21 | PROVIDERS: ATTEND Internal Medicine | DX: Z12.31 Encounter for screening mammogram for malignant neoplasm of breast (principal) | CPT/HCPCS: 77067 ==

== ENCOUNTER → 2023-01-27 | Outpatient (CLI) | payer OTHER ==
[2023-01-27 11:23] LABS: BASOPHILS # (AUTO) 0.04 K/uL (0.00-0.20); BASOPHILS % (AUTO) 0.6 % (0.0-5.0); EOSINOPHILS # (AUTO) 0.09 K/uL (0.00-0.70); EOSINOPHILS % (AUTO) 1.3 % (0.0-8.0); HEMATOCRIT 39.3 % (36-48); HEMOGLOBIN A1C 7.1 % (4.0-6.0); IMMATURE GRANULOCYTE ABSOLUTE 0.04 K/uL (0-1); LYMPHOCYTES # (AUTO) 1.6 K/uL (1.0-4.8); LYMPHOCYTES % (AUTO) 23.9 % (21.0-51.0); MEAN CORPUSCULAR HEMOGLOBIN 25.8 pg (27.0-33.0); MEAN CORPUSCULAR HGB CONC 32.1 g/dL (32.0-36.0); MEAN CORPUSCULAR VOLUME 80.5 fL (79-99); MONOCYTES # (AUTO) 0.4 K/uL (0.1-1.0); MONOCYTES % (AUTO) 5.4 % (3.0-13.0); NEUTROPHILS # (AUTO) 4.6 K/uL (1.8-7.7); NEUTROPHILS % (AUTO) 68.2 % (40.0-77.0); PLATELET COUNT (AUTO) 231 K/uL (130-400); RED BLOOD CELL COUNT(AUTO) 4.88 MIL/uL (4.00-5.50); RED CELL DISTRIBUTION WIDTH 14.4 % (11.0-15.5); WHITE BLOOD COUNT (AUTO) 6.7 K/uL (4.8-10.8)
[2023-01-27 11:39] LABS: ALBUMIN 3.3 g/dL (3.5-5.0); BILIRUBIN,DIRECT 0.1 mg/dL (0.0-0.3); BILIRUBIN,TOTAL 0.4 mg/dL (0.2-1.0); POTASSIUM 4.2 mmol/L (3.5-5.1); THYROID STIMULATING HORMONE 3.58 uIU/mL (0.36-3.74); TOTAL PROTEIN, SERUM 7.9 g/dL (6.0-8.3)
== END | disposition home or self-care (01) ==
LOC: LAB 08:41
PROVIDERS: ATTEND Internal Medicine
DX: Z13.220 Encounter for screening for lipoid disorders (principal); R47.01 Aphasia; E11.42 Type 2 diabetes mellitus with diabetic polyneuropathy; G95.9 Disease of spinal cord, unspecified; M05.771 Rheumatoid arthritis with rheumatoid factor of right ankle and foot without organ or systems involvement; M06.9 Rheumatoid arthritis, unspecified; M54.16 Radiculopathy, lumbar region; R22.0 Localized swelling, mass and lump, head; R26.81 Unsteadiness on feet
CPT/HCPCS: 36415; 80053; 80061; 80076; 82043; 82248; 82570; 83036; 84443; 85025

== ENCOUNTER → 2023-01-30 | Outpatient (CLI) | payer OTHER ==
[~2023-01-30] MED LIST changes: +GADOTERATE MEGLUMINE 10 MMOL/20 ML VIAL IV ONE
== END | disposition home or self-care (01) ==
LOC: RAH 08:00
PROVIDERS: ATTEND Internal Medicine
DX: M47.26 Other spondylosis with radiculopathy, lumbar region (principal); G95.9 Disease of spinal cord, unspecified; M06.9 Rheumatoid arthritis, unspecified; R22.0 Localized swelling, mass and lump, head; M48.061 Spinal stenosis, lumbar region without neurogenic claudication; M51.17 Intervertebral disc disorders with radiculopathy, lumbosacral region; M48.07 Spinal stenosis, lumbosacral region
CPT/HCPCS: 70553; 72148; A9575

== ENCOUNTER → 2023-06-08 | Outpatient (CLI) | payer OTHER ==
[~2023-06-08] MED LIST changes: -GADOTERATE MEGLUMINE 10 MMOL/20 ML VIAL IV ONE
[2023-06-08 08:06] LABS: BASOPHILS # (AUTO) 0.03 K/uL (0.00-0.20); BASOPHILS % (AUTO) 0.6 % (0.0-5.0); EOSINOPHILS # (AUTO) 0.11 K/uL (0.00-0.70); EOSINOPHILS % (AUTO) 2.2 % (0.0-8.0); HEMATOCRIT 41.4 % (36-48); IMMATURE GRANULOCYTE ABSOLUTE 0.01 K/uL (0-1); LYMPHOCYTES # (AUTO) 1.2 K/uL (1.0-4.8); LYMPHOCYTES % (AUTO) 23.9 % (21.0-51.0); MEAN CORPUSCULAR HEMOGLOBIN 26.4 pg (27.0-33.0); MEAN CORPUSCULAR HGB CONC 32.6 g/dL (32.0-36.0); MONOCYTES # (AUTO) 0.3 K/uL (0.1-1.0); MONOCYTES % (AUTO) 5.7 % (3.0-13.0); NEUTROPHILS # (AUTO) 3.4 K/uL (1.8-7.7); NEUTROPHILS % (AUTO) 67.4 % (40.0-77.0); PLATELET COUNT (AUTO) 203 K/uL (130-400); RED BLOOD CELL COUNT(AUTO) 5.11 MIL/uL (4.00-5.50); RED CELL DISTRIBUTION WIDTH 14.4 % (11.0-15.5); WHITE BLOOD COUNT (AUTO) 5.1 K/uL (4.8-10.8)
[2023-06-08 08:33] LABS: HEMOGLOBIN A1C 6.8 % (4.0-6.0)
[2023-06-08 08:42] LABS: ALBUMIN 3.3 g/dL (3.5-5.0); BILIRUBIN,DIRECT 0.1 mg/dL (0.0-0.3); BILIRUBIN,TOTAL 0.3 mg/dL (0.2-1.0); POTASSIUM 4.3 mmol/L (3.5-5.1); THYROID STIMULATING HORMONE 2.99 uIU/mL (0.36-3.74); TOTAL PROTEIN, SERUM 7.8 g/dL (6.0-8.3)
[2023-06-08 09:25] LABS: ERYTHROCYTE SEDIMENTATION RATE 15 MM/HR (0-30)
== END | disposition home or self-care (01) ==
LOC: LAB 07:23
PROVIDERS: ATTEND Internal Medicine
DX: Z13.220 Encounter for screening for lipoid disorders (principal); Z13.29 Encounter for screening for other suspected endocrine disorder; E11.42 Type 2 diabetes mellitus with diabetic polyneuropathy; R53.83 Other fatigue; I10 Essential (primary) hypertension; M05.771 Rheumatoid arthritis with rheumatoid factor of right ankle and foot without organ or systems involvement; J06.9 Acute upper respiratory infection, unspecified
CPT/HCPCS: 36415; 80053; 80061; 80076; 82248; 82570; 83036; 84443; 85025; 85651; 86140

== ENCOUNTER → 2023-09-18 | Outpatient (CLI) | payer OTHER | END | disposition home or self-care (01) | LOC: RAH 13:27 | PROVIDERS: ATTEND Internal Medicine Cardiovascular Disease | DX: I26.99 Other pulmonary embolism without acute cor pulmonale (principal) | CPT/HCPCS: 93306; 78582; 71046; A9540; A9558 ==

== ENCOUNTER → 2023-11-07 | Outpatient (CLI) | payer OTHER ==
[~2023-11-07] MED LIST changes: +DICL100G32 TP
[2023-11-07 08:35] LABS: HEMOGLOBIN A1C 6.6 % (4.0-6.0)
[2023-11-07 09:13] LABS: ALBUMIN 3.4 g/dL (3.5-5.0); BILIRUBIN,DIRECT 0.1 mg/dL (0.0-0.3); BILIRUBIN,TOTAL 0.3 mg/dL (0.2-1.0); POTASSIUM 4.2 mmol/L (3.5-5.1); THYROID STIMULATING HORMONE 3.18 uIU/mL (0.36-3.74)
[2023-11-07 10:10] LABS: ERYTHROCYTE SEDIMENTATION RATE 36 MM/HR (0-30)
[2023-11-07 10:12] LABS: BASOPHILS # (AUTO) 0.05 K/uL (0.00-0.20); BASOPHILS % (AUTO) 0.9 % (0.0-5.0); EOSINOPHILS % (AUTO) 1.7 % (0.0-8.0); HEMATOCRIT 39.2 % (36-48); IMMATURE GRANULOCYTE ABSOLUTE 0.03 K/uL (0-1); LYMPHOCYTES # (AUTO) 1.7 K/uL (1.0-4.8); LYMPHOCYTES % (AUTO) 28.7 % (21.0-51.0); MEAN CORPUSCULAR HEMOGLOBIN 26.2 pg (27.0-33.0); MEAN CORPUSCULAR HGB CONC 31.9 g/dL (32.0-36.0); MONOCYTES # (AUTO) 0.3 K/uL (0.1-1.0); MONOCYTES % (AUTO) 5.5 % (3.0-13.0); NEUTROPHILS # (AUTO) 3.7 K/uL (1.8-7.7); NEUTROPHILS % (AUTO) 62.7 % (40.0-77.0); PLATELET COUNT (AUTO) 206 K/uL (130-400); RED BLOOD CELL COUNT(AUTO) 4.78 MIL/uL (4.00-5.50); RED CELL DISTRIBUTION WIDTH 13.9 % (11.0-15.5); WHITE BLOOD COUNT (AUTO) 5.9 K/uL (4.8-10.8)
== END | disposition home or self-care (01) ==
LOC: LAB 08:13
PROVIDERS: ATTEND Internal Medicine
DX: Z00.00 Encounter for general adult medical examination without abnormal findings (principal); E11.42 Type 2 diabetes mellitus with diabetic polyneuropathy; E66.2 Morbid (severe) obesity with alveolar hypoventilation; I10 Essential (primary) hypertension; M05.771 Rheumatoid arthritis with rheumatoid factor of right ankle and foot without organ or systems involvement; M48.061 Spinal stenosis, lumbar region without neurogenic claudication; R53.83 Other fatigue
CPT/HCPCS: 36415; 80053; 80061; 82248; 82306; 82607; 83036; 84443; 85025; 85651; 86140

== ENCOUNTER 2023-11-08 07:20 | Emergency (ER) | payer OTHER ==
[~2023-11-08] VITALS: Ht 152.4 cm; Wt 132.9 kg
[~2023-11-08 07:20] MED LIST changes: -DICL100G32 TP
[2023-11-08 07:22] VITALS: BP 194/98; PULSE 91; RESP 20; TEMP 98.3
[2023-11-08] MEDS: ketOROlac 60 MG VIAL (30MG/ML) IM ONE (08:39)
[2023-11-08] MEDS ORDERED: NAPR500T6 PO (10:23)
== END 2023-11-08 10:43 | disposition home or self-care (01) ==
LOC: EDH 07:20
DX: S86.811A Strain of other muscle(s) and tendon(s) at lower leg level, right leg, initial encounter (principal); S66.811A Strain of other specified muscles, fascia and tendons at wrist and hand level, right hand, initial encounter; I10 Essential (primary) hypertension; F32.A Depression, unspecified; E66.9 Obesity, unspecified; M06.9 Rheumatoid arthritis, unspecified; Z98.890 Other specified postprocedural states; Z90.710 Acquired absence of both cervix and uterus; Z88.1 Allergy status to other antibiotic agents; Z88.8 Allergy status to other drugs, medicaments and biological substances; W18.39XA Other fall on same level, initial encounter; Y93.89 Activity, other specified; Y92.89 Other specified places as the place of occurrence of the external cause; Y99.8 Other external cause status
CPT/HCPCS: 99284; 73080; 73090; 96372; J1885

== ENCOUNTER 2023-11-22 07:35 | Emergency (ER) | payer OTHER ==
[~2023-11-22] VITALS: Ht 152.4 cm; Wt 123.4 kg
[2023-11-22] MEDS: ketOROlac 60 MG VIAL (30MG/ML) IM ONE (08:02)
[2023-11-22] MEDS: dexaMETHasone SOD PHOSPHATE 4 MG/ML 1ML VIAL IM ONE (09:28)
[2023-11-22] MEDS ORDERED: DICL100G32 TP (09:43)
[2023-11-22 09:58] VITALS: BP 166/81; PULSE 81; RESP 17; TEMP 98.3; O2SAT 99
== END 2023-11-22 09:58 | disposition home or self-care (01) ==
LOC: EDH 07:35
DX: M76.51 Patellar tendinitis, right knee (principal); M25.521 Pain in right elbow; M79.601 Pain in right arm; M25.551 Pain in right hip; E66.9 Obesity, unspecified; I10 Essential (primary) hypertension; M06.9 Rheumatoid arthritis, unspecified; Z79.899 Other long term (current) drug therapy; Z86.73 Personal history of transient ischemic attack (TIA), and cerebral infarction without residual deficits; Z88.1 Allergy status to other antibiotic agents; Z90.710 Acquired absence of both cervix and uterus; Z91.013 Allergy to seafood; W18.39XA Other fall on same level, initial encounter; Y93.89 Activity, other specified; Y92.89 Other specified places as the place of occurrence of the external cause; Y99.8 Other external cause status
CPT/HCPCS: 99284; 73502; 73562; 73590; 96372 ×2; J1100; J1885

== ENCOUNTER → 2024-03-04 | Outpatient (CLI) | payer OTHER ==
[~2024-03-04] MED LIST changes: +DICL100G32 TP; +NAPR-1506 PO; -NAPR500T6 PO
[2024-03-04 11:02] LABS: BASOPHILS # (AUTO) 0.04 K/uL (0.00-0.20); BASOPHILS % (AUTO) 0.6 % (0.0-5.0); EOSINOPHILS # (AUTO) 0.13 K/uL (0.00-0.70); HEMATOCRIT 40.8 % (36-48); IMMATURE GRANULOCYTE ABSOLUTE 0.02 K/uL (0-1); LYMPHOCYTES # (AUTO) 1.5 K/uL (1.0-4.8); LYMPHOCYTES % (AUTO) 23.1 % (21.0-51.0); MEAN CORPUSCULAR HEMOGLOBIN 26.5 pg (27.0-33.0); MEAN CORPUSCULAR HGB CONC 32.1 g/dL (32.0-36.0); MEAN CORPUSCULAR VOLUME 82.6 fL (79-99); MONOCYTES # (AUTO) 0.4 K/uL (0.1-1.0); MONOCYTES % (AUTO) 5.8 % (3.0-13.0); NEUTROPHILS # (AUTO) 4.5 K/uL (1.8-7.7); NEUTROPHILS % (AUTO) 68.2 % (40.0-77.0); PLATELET COUNT (AUTO) 231 K/uL (130-400); RED BLOOD CELL COUNT(AUTO) 4.94 MIL/uL (4.00-5.50); RED CELL DISTRIBUTION WIDTH 13.9 % (11.0-15.5); WHITE BLOOD COUNT (AUTO) 6.6 K/uL (4.8-10.8)
[2024-03-04 11:08] LABS: HEMOGLOBIN A1C 7.2 % (4.0-6.0)
[2024-03-04 11:47] LABS: ALBUMIN 3.5 g/dL (3.5-5.0); BILIRUBIN,DIRECT 0.1 mg/dL (0.0-0.3); BILIRUBIN,TOTAL 0.4 mg/dL (0.2-1.0); CREATININE 0.9 mg/dL (0.5-1.0); THYROID STIMULATING HORMONE 3.53 uIU/mL (0.36-3.74); TOTAL PROTEIN, SERUM 7.9 g/dL (6.0-8.3)
== END | disposition home or self-care (01) ==
LOC: LAB 09:42
PROVIDERS: ATTEND Internal Medicine
DX: Z13.220 Encounter for screening for lipoid disorders (principal); I10 Essential (primary) hypertension; E11.42 Type 2 diabetes mellitus with diabetic polyneuropathy; M05.771 Rheumatoid arthritis with rheumatoid factor of right ankle and foot without organ or systems involvement; R53.83 Other fatigue; M17.10 Unilateral primary osteoarthritis, unspecified knee
CPT/HCPCS: 36415; 80053; 80061; 80076; 82043; 82306; 82533; 82570; 82607; 83036; 84443; 85025

== ENCOUNTER 2024-05-28 11:54 | Emergency (ER) | payer OTHER ==
[~2024-05-28] VITALS: Ht 152.4 cm; Wt 127.9 kg
[2024-05-28 13:03] LABS: BASOPHILS # (AUTO) 0.03 K/uL (0.00-0.20); BASOPHILS % (AUTO) 0.4 % (0.0-5.0); EOSINOPHILS # (AUTO) 0.14 K/uL (0.00-0.70); HEMATOCRIT 39.2 % (36-48); IMMATURE GRANULOCYTE ABSOLUTE 0.02 K/uL (0-1); LYMPHOCYTES # (AUTO) 1.5 K/uL (1.0-4.8); MEAN CORPUSCULAR HGB CONC 32.1 g/dL (32.0-36.0); MEAN CORPUSCULAR VOLUME 80.8 fL (79-99); MONOCYTES # (AUTO) 0.4 K/uL (0.1-1.0); MONOCYTES % (AUTO) 5.2 % (3.0-13.0); NEUTROPHILS # (AUTO) 4.9 K/uL (1.8-7.7); NEUTROPHILS % (AUTO) 70.1 % (40.0-77.0); PLATELET COUNT (AUTO) 207 K/uL (130-400); RED BLOOD CELL COUNT(AUTO) 4.85 MIL/uL (4.00-5.50); RED CELL DISTRIBUTION WIDTH 14.1 % (11.0-15.5); WHITE BLOOD COUNT (AUTO) 6.9 K/uL (4.8-10.8)
--- NOTE | 2024-05-28 13:04 | ERN ---
General Chief Complaint: Abscess Stated Complaint: ABSCESS BENEATH L BREAST Time Seen by MD: 12:01 Source: patient History of Present Illness Initial Comments Patient is a 53-year-old female coming in to be evaluated for left breast pain. States he noticed it leaking earlier today decided to come in for further evaluation. No fever no chills nausea or vomiting. Allergies: Coded Allergies: clindamycin (Unverified Allergy, Intermediate, 05/28/24) RASH AND ABD PAIN fish derived (Unverified Allergy, Intermediate, 10/23/19) Fish Containing Products (Unverified Allergy, Unknown, 09/20/19) ALLERGIC TO FISH shellfish derived (Unverified Allergy, Unknown, RASH, 08/13/18) Home Meds Active Scripts Diclofenac Sodium (Diclofenac Sodium) 3 % Gel..gram., 1 APPL TP QID for 14 Days, #100 GM 1 Refill Prov:CLAIRE ARDON MD 11/22/23 Naproxen (Naproxen) 500 Mg Tablet.dr, 500 MG PO BIDPC, #30 TAB 1 Refill Prov:CLAIRE ARDON MD 11/08/23 Naproxen (Naproxen) 500 Mg Tablet.dr, 500 MG PO BID for 7 Days, #14 TAB Prov:DAYANARA ARSHAD MD 07/12/22 Reported Medications Semaglutide (Ozempic) 1 Mg/0.75 Ml Pen.injctr, 1 MG SQ QWEEK EVERY Friday05/26/21 Amlodipine Besylate (Amlodipine Besylate) 5 Mg Tablet, 5 MG PO DAILY, TAB 05/26/21 Carvedilol (Carvedilol) 12.5 Mg Tablet, 12.5 MG PO BID, TAB 08/15/18 Past Medical History Past Medical History: Arthritis, Diabetes-Type II, Hypertension Medical History Other: BRAIN TUMOR, MORBID OBESITY Past Surgical History: Other Surgical History Other: BRAIN SURGERY Social History Social History: Other ROS Dictation CONSTITUTIONAL: No chills, no fever, no weakness, no diaphoresis, no malaise. HEAD/FACE: No signs of trauma. EENT: No eye pain, no blurred vision, no tearing, no double vision, no ear pain, no ear discharge, no nose pain, no nasal congestion, no throat pain, no throat swelling, no mouth pain. RESPIRATORY: No cough, no orthopnea, no SOB, no stridor, no wheezing. CARDIOVASCULAR: No chest pain, no edema, no palpitations, no syncope. GASTROINTESTINAL/ABDOMINAL: No abdominal pain, no constipation, no diarrhea, no nausea, no vomiting. GENITOURINARY: No abnormal discharge, no dysuria, no frequent urination, no hematuria. No complaints of pain in the genitals. MUSCULOSKELETAL: No back pain, no gout, no joint pain, no joint swelling, no muscle pain, no muscle stiffness, no neck pain. INTEGUMENTARY: No change in color, no change in hair/nails, breast abscess drainage NEUROLOGICAL/PSYCH: No anxiety, not depressed, no emotional problem, no headache, no numbness, no pre-existing deficit, no history of seizures, no tremors, no weakness. HEMATOLOGIC/LYMPHATIC: Not anemic, no history of blood clots, no apparent bleeding, no bruising, glands not swollen. All Systems Negative, Except as Noted. Physical Exam Physical Exam Dictation VITAL SIGNS: Reviewed. GENERAL APPEARANCE: Alert, oriented x3, no acute distress, obese. HEAD AND FACE: Non-traumatic. EYES: PERRL, pink conjunctivas, eyelid no trauma, anterior chamber clear. EARS: Pinnas intact and no signs of trauma or erythema. Ear canals clear and no discharge. TMs no erythema. NOSE: No discharge, no bleeding. OROPHARYNX: Mouth normal, teeth no caries, tongue pink. Pharynx clear, no erythema. Tonsils no exudates, no abscesses noted. Mucous membrane moist. NECK: Supple, non-tender, no thyromegaly, no masses, no JVD, no bruits. BREAST: Deferred. CHEST: No tenderness, no crepitus, no paradoxical movement, no retractions. LUNGS: Clear, well-ventilated, symmetric, no rales, no wheezing, no rhonchi, no stridor, good breath sounds bilaterally. HEART: Regular rate, regular rhythm, no murmur, no gallops. VASCULAR: No peripheral edema. ABDOMEN: Soft, positive bowel sounds, nondistended, no guarding, nontender, no rebound, no masses no hepatomegaly, no splenomegaly, no Jeronimo's sign, no hernias. RECTAL: Deferred. GENITAL: Deferred. NEUROLOGICAL: Normal speech, gross motor function intact, gross sensory function intact. MUSCULOSKELETAL: Neck nontender, full range of motion, back nontender, full range of motion. EXTREMITIES: Nontender, full range of motion. SKIN: Color pink, dry, no turgor, no rash, no lacerations, left breast lower abscess draining, chaperoned by nurse, LYMPHATICS: Deferred. Results Laboratory and Microbiology Lab and Micro Result Laboratory Tests Test 05/28/24 12:57 White Blood Count 6.9 K/uL (4.8-10.8) Red Blood Count 4.85 MIL/uL (4.00-5.50) Hemoglobin 12.6 g/dL (12.0-16.0) Hematocrit 39.2 % (36-48) Mean Corpuscular Volume 80.8 fL (79-99) Mean Corpuscular Hemoglobin 26.0 pg (27.0-33.0) L Mean Corpuscular Hemoglobin Concent 32.1 g/dL (32.0-36.0) Red Cell Distribution Width 14.1 % (11.0-15.5) Platelet Count 207 K/uL (130-400) Mean Platelet Volume 11.2 fL (7.5-10.5) H Immature Granulocyte % (Auto) 0.3 % (0-1) Neutrophils (%) (Auto) 70.1 % (40.0-77.0) Lymphocytes (%) (Auto) 22.0 % (21.0-51.0) Monocytes (%) (Auto) 5.2 % (3.0-13.0) Eosinophils (%) (Auto) 2.0 % (0.0-8.0) Basophils (%) (Auto) 0.4 % (0.0-5.0) Neutrophils # (Auto) 4.9 K/uL (1.8-7.7) Lymphocytes # (Auto) 1.5 K/uL (1.0-4.8) Monocytes # (Auto) 0.4 K/uL (0.1-1.0) Eosinophils # (Auto) 0.14 K/uL (0.00-0.70) Basophils # (Auto) 0.03 K/uL (0.00-0.20) Absolute Immature Granulocyte (auto 0.02 K/uL (0-1) Nucleated Red Blood Cells 0.0 % (0.0-0.19) Sodium Level 143 mmol/L (136-145) Potassium Level 4.0 mmol/L (3.5-5.1) Chloride Level 104 mmol/L (101-111) Carbon Dioxide Level 31 mmol/L (21-32) Blood Urea Nitrogen 18 mg/dL (7-18) Creatinine 0.9 mg/dL (0.5-1.0) Glomerular Filtration Rate Calc 77 mL/min (>90) Random Glucose 128 mg/dL (70-105) H Total Calcium 8.7 mg/dL (8.5-10.1) MDM MDM: Differential diagnosis: Breast abscess, I and D, Patient is a 53-year-old female coming in to be evaluated for left breast abscess. So he she states that the breast abscess with a identified a week ago and today was started draining. Physical exam she does have an abscess draining in the left lower breast region. It was cleaned anesthetized and washed thoroughly iodoform packing was introduced. Patient tolerated procedure well. ED Course Orders Procedure Category Date Status Time Cbc With Differential LAB 05/28/24 Complete 12:06 Basic Metabolic Panel LAB 05/28/24 Complete 12:06 Lidocaine Hcl 1% 20ml PHA 05/28/24 Complete Vial (Lidocaine Hc 12:06 Current Medications Medications (Trade) Dose Ordered Sig/Jacinto Route PRN Reason Start Time Stop Time Status Last Admin Dose Admin Lidocaine HCl (Lidocaine HCl 1% 20ml Vial) 20 ml ONCE STAT INJ 05/28/24 12:06 05/28/24 12:11 DC Incision and Drainage Incision and Drainage : Blade Size: I & D Procedure: no betadine prep Progress In his started environment the left breast abscess drained in was anesthetized using lidocaine 1% 5 mL were used. After good in his seems in his she was. Was probed loculations broken up was irrigated. He was using packing 3 in were introduced in the left breast she tolerated procedure well. Patient will be discharged in stable condition. DX & DISP Disposition: Discharge Departure Impression: Primary Impression: Breast abscess Condition: Stable Scripts Cephalexin Monohydrate (Keflex) 500 Mg Cap 1 CAP PO TID for 10 Days, #30 CAP 0 Refills Prov: CLAUDIA CLINE MD 05/28/24 Additional Instructions: FOLLOW-UP WITH PRIMARY CARE PROVIDER IN 1 TO 2 DAYS. TAKE MEDICATIONS DIRECTED HERE IN THE EMERGENCY ROOM. OKAY TO CONTINUE HOME MEDICATIONS UNLESS OTHERWISE DISCUSSED DURING YOUR VISIT IN THE EMERGENCY ROOM TODAY. RETURN TO YOUR NEAREST EMERGENCY ROOM IF SYMPTOMS WORSEN OR IF THERE IS NO IMPROVEMENT. CALL 911 IF YOU NEED IMMEDIATE ASSISTANCE. TAKE TYLENOL [id number] N EEDED AND IF NO CONTRAINDICATIONS ARE PRESENT. INCREASE ORAL HYDRATION. A WOUND CULTURE OR URINE CULTURE WAS ORDERED HERE IN THE EMERGENCY ROOM DEPARTMENT PLEASE FOLLOW-UP WITH PRIMARY CARE PROVIDER AND ADVISE THEM TO GET REPEAT PORTS FROM OUR FACILITY. IF YOU HAD ANY JAYME WRAP/SPLINTS THAT WERE APPLIED HERE, PLEASE DO NOT REMOVE THEM UNTIL YOU SEE YOUR PRIMARY CARE OR SPECIALTY. Referrals: Referrals: TERA LEDBETTER MD (PCP) Time of Disposition: 13:20 CLAUDIA CLINE MD May 28, 2024 13:04
[2024-05-28 13:08] LABS: CREATININE 0.9 mg/dL (0.5-1.0)
[2024-05-28] MEDS ORDERED: CEPH500B PO (13:21)
[2024-05-28] MEDS: LIDOCAINE HCL 1% 20 ML VIAL INJ STA (13:26)
[2024-05-28 13:41] VITALS: BP 130/71; PULSE 79; RESP 20; TEMP 98.4; O2SAT 96
== END 2024-05-28 13:42 | disposition home or self-care (01) ==
LOC: EDH 11:54
DX: N61.1 Abscess of the breast and nipple (principal); E11.9 Type 2 diabetes mellitus without complications; E66.01 Morbid (severe) obesity due to excess calories; I10 Essential (primary) hypertension; M19.90 Unspecified osteoarthritis, unspecified site; Z79.85 Long-term (current) use of injectable non-insulin antidiabetic drugs; Z79.899 Other long term (current) drug therapy; Z88.1 Allergy status to other antibiotic agents
CPT/HCPCS: 10060; 36415; 80048; 85025; 99283

== ENCOUNTER → 2024-06-04 | Outpatient (CLI) | payer OTHER ==
[~2024-06-04] MED LIST changes: +CEPH500B PO; +GADOTERATE MEGLUMINE 10 MMOL/20 ML VIAL IV ONE
--- NOTE | 2024-06-04 12:32 | HMCIMG ---
MR BRAIN WWO CON HISTORY: Mass COMPARISON: None TECHNIQUE: MRI of the brain was performed utilizing multiple pulse sequences in axial, coronal and sagittal planes. Patient was given 20 cc of Clariscan through intravenous route. FINDINGS: The ventricles and extraventricular CSF spaces are nondilated for patient's age. Nonspecific white matter changes are seen may be related to ischemia, infarction or demyelinating process. Clinical correlation is recommended. There is no midline shift, mass effect or herniation. No subacute hemorrhage is seen. No MR evidence of acute infarct is seen in the diffusion weighted images. Cerebellar tonsils are in normal position. No evidence of mucoperiosteal thickening is seen of the visualized paranasal sinuses. No MR evidence of mass lesion or abnormal enhancement is seen. IMPRESSION: 1. No MR evidence of acute infarct is seen in the diffusion weighted images. Nonspecific white matter changes. No mass lesion or abnormal enhancement is seen. Clinical correlation is recommended.
== END | disposition home or self-care (01) ==
LOC: RAH 08:43
PROVIDERS: ATTEND Internal Medicine
DX: R22.0 Localized swelling, mass and lump, head (principal)
CPT/HCPCS: 70553; A9575

== ENCOUNTER → 2024-06-09 | Outpatient (CLI) | payer OTHER ==
[~2024-06-09] MED LIST changes: -GADOTERATE MEGLUMINE 10 MMOL/20 ML VIAL IV ONE
--- NOTE | 2024-06-10 09:52 | HMCIMG ---
PROCEDURE: MAMMO DX BILATERAL HISTORY: Breast pain COMPARISON: 12/26/2022 TECHNIQUE: Bilateral digital diagnostic mammogram with CAD was performed. No additional views were obtained. FINDINGS: The breasts are heterogeneously dense, which may obscure small masses. There is no evidence of a dominant mass, or suspicious microcalcification. There is no evidence of nipple retraction or skin thickening. IMPRESSION: 1. Stable mammogram. BI-RADS: CATEGORY 2: BENIGN FINDINGS Recommend monthly self breast exam as well as annual clinical examination. A negative x-ray should not delay biopsy if a dominant or clinically suspicious mass is present, since 8-10% of cancers are not identified by mammography. Dense breasts particularly, may obscure an underlying neoplasm. Some of these may be detected clinically and therefore, clinical examination is an essential part of breast evaluation.
--- NOTE | 2024-06-10 10:09 | HMCIMG ---
US BREAST COMPLETE UNILATERAL REASON: MASTODYNIA. COMPARISON: Mammogram from the same day TECHNIQUE: Left breast ultrasound study was performed with specific attention given to the region of interest had 5:00 area. FINDINGS: In the region of interest, there are inflammatory changes with skin thickening. There is superficial hypoechoic area measuring 18 x 3 x 13 mm at 5:00 in the region of interest consistent with previously drained boil. No other cystic or hypoechoic mass is seen of the left breast. There are left axillary lymph nodes with the largest measuring 17 x 5 x 14 mm. IMPRESSION: Findings as described above. CATEGORY 2: BENIGN FINDINGS Recommend monthly self breast exam as well as annual clinical examination.
== END | disposition home or self-care (01) ==
LOC: RAH 13:51
PROVIDERS: ATTEND Internal Medicine
DX: N64.89 Other specified disorders of breast (principal); N64.4 Mastodynia; R92.333 Mammographic heterogeneous density, bilateral breasts
CPT/HCPCS: 76641; 77066

== ENCOUNTER → 2024-06-21 | Outpatient (CLI) | payer OTHER ==
[2024-06-21 10:19] LABS: BASOPHILS # (AUTO) 0.04 K/uL (0.00-0.20); BASOPHILS % (AUTO) 0.6 % (0.0-5.0); EOSINOPHILS # (AUTO) 0.12 K/uL (0.00-0.70); EOSINOPHILS % (AUTO) 1.9 % (0.0-8.0); HEMATOCRIT 39.7 % (36-48); IMMATURE GRANULOCYTE ABSOLUTE 0.01 K/uL (0-1); LYMPHOCYTES # (AUTO) 1.6 K/uL (1.0-4.8); LYMPHOCYTES % (AUTO) 25.1 % (21.0-51.0); MEAN CORPUSCULAR HEMOGLOBIN 25.7 pg (27.0-33.0); MEAN CORPUSCULAR VOLUME 80.4 fL (79-99); MONOCYTES # (AUTO) 0.4 K/uL (0.1-1.0); MONOCYTES % (AUTO) 6.3 % (3.0-13.0); NEUTROPHILS # (AUTO) 4.1 K/uL (1.8-7.7); NEUTROPHILS % (AUTO) 65.9 % (40.0-77.0); PLATELET COUNT (AUTO) 213 K/uL (130-400); RED BLOOD CELL COUNT(AUTO) 4.94 MIL/uL (4.00-5.50); RED CELL DISTRIBUTION WIDTH 14.6 % (11.0-15.5); WHITE BLOOD COUNT (AUTO) 6.2 K/uL (4.8-10.8)
[2024-06-21 10:25] LABS: HEMOGLOBIN A1C 6.7 % (4.0-6.0)
[2024-06-21 10:57] LABS: ALBUMIN 3.4 g/dL (3.5-5.0); BILIRUBIN,DIRECT 0.1 mg/dL (0.0-0.3); BILIRUBIN,TOTAL 0.4 mg/dL (0.2-1.0); POTASSIUM 4.3 mmol/L (3.5-5.1); THYROID STIMULATING HORMONE 3.35 uIU/mL (0.36-3.74); TOTAL PROTEIN, SERUM 7.7 g/dL (6.0-8.3)
== END | disposition home or self-care (01) ==
LOC: LAB 09:41
PROVIDERS: ATTEND Internal Medicine
DX: M05.771 Rheumatoid arthritis with rheumatoid factor of right ankle and foot without organ or systems involvement (principal); E66.01 Morbid (severe) obesity due to excess calories; E11.59 Type 2 diabetes mellitus with other circulatory complications; M48.061 Spinal stenosis, lumbar region without neurogenic claudication; N61.0 Mastitis without abscess; N64.4 Mastodynia; R53.83 Other fatigue; R22.0 Localized swelling, mass and lump, head; Z98.890 Other specified postprocedural states; Z13.29 Encounter for screening for other suspected endocrine disorder; Z00.00 Encounter for general adult medical examination without abnormal findings
CPT/HCPCS: 36415; 80053; 80061; 82043; 82248; 82306; 82570; 82607; 83036; 84443; 85025

== ENCOUNTER 2024-10-18 08:56 | Observation (INO) | payer OTHER ==
[~2024-10-18] VITALS: Ht 152.4 cm; Wt 131.2 kg
[2024-10-18 09:21] LABS: IMMATURE GRANULOCYTE ABSOLUTE 0.02 K/uL (0-1); NUCLEATED RED BLOOD CELLS 0.0 % (0.0-0.19); PLATELET COUNT (AUTO) 171 K/uL (130-400); RED BLOOD CELL COUNT(AUTO) 4.57 MIL/uL (4.00-5.50); RED CELL DISTRIBUTION WIDTH 14.4 % (11.0-15.5); WHITE BLOOD COUNT (AUTO) 4.5 K/uL (4.8-10.8)
[2024-10-18 09:33] LABS: CREATININE 1.1 mg/dL (0.5-1.0); GLOMERULAR FILTR. RATE CALC 60.0 mL/min (>90); GLUCOSE,RANDOM 99.0 mg/dL (70-105); SODIUM SERUM 141.0 mmol/L (136-145); UREA NITROGEN, BLOOD 18.0 mg/dL (7-18)
[2024-10-18 09:42] LABS: INFLUENZA TYPE A Negative For Type A (NEGATIVE); INFLUENZA TYPE B Negative For Type B (NEGATIVE)
--- NOTE | 2024-10-18 10:02 | ERN ---
ED Note History of Present Illness Stated Complaint: COUGH, CONGESTION, BODY ACHES Chief Complaint: Cough Time Seen by MD: 08:58 Dictation: 53-year-old female presenting to the emergency department with cough cold congestion and body aches positive sick contacts been sick for two days but worse today Allergies: Coded Allergies: clindamycin (Unverified Allergy, Intermediate, 05/28/24) RASH AND ABD PAIN fish derived (Unverified Allergy, Intermediate, 10/23/19) Fish Containing Products (Unverified Allergy, Unknown, 09/20/19) ALLERGIC TO FISH shellfish derived (Unverified Allergy, Unknown, RASH, 08/13/18) Home Meds Active Scripts Cephalexin Monohydrate (Keflex) 500 Mg Cap, 1 CAP PO TID for 10 Days, #30 CAP 0 Refills Prov:CLAUDIA CLINE MD 05/28/24 Diclofenac Sodium (Diclofenac Sodium) 3 % Gel..gram., 1 APPL TP QID for 14 Days, #100 GM 1 Refill Prov:CLAIRE ARDON MD 11/22/23 Naproxen (Naproxen) 500 Mg Tablet.dr, 500 MG PO BIDPC, #30 TAB 1 Refill Prov:CLAIRE ARDON MD 11/08/23 Naproxen (Naproxen) 500 Mg Tablet.dr, 500 MG PO BID for 7 Days, #14 TAB Prov:DAYANARA ARSHAD MD 07/12/22 Reported Medications Semaglutide (Ozempic) 1 Mg/0.75 Ml Pen.injctr, 1 MG SQ QWEEK EVERY Friday05/26/21 Amlodipine Besylate (Amlodipine Besylate) 5 Mg Tablet, 5 MG PO DAILY, TAB 05/26/21 Carvedilol (Carvedilol) 12.5 Mg Tablet, 12.5 MG PO BID, TAB 08/15/18 Past Medical History Past Medical History: Arthritis, Diabetes-Type II, Hypertension Additional Past Medical Hx: BRAIN TUMOR, MORBID OBESITY Surgical History: Other Surgical History Other: BRAIN SURGERY Social History: Other Review of System Dictation Constitutional: Per HPI Eyes: Negative for injury, pain,redness, and discharge ENT: Negative for injury,pain or swelling Cardiovascular: Negative for chest pain, palpitations, and edema Respiratory: Per HPI Abdomen/GI: Negative for abdominal pain, nausea, vomiting, diarrhea, and constipation Neuro: Negative for headache, weakness, numbness, tingling, and seizure Initial Vital Sign VS Vital Signs Date Time Temp Pulse Resp B/P (MAP) Pulse Ox O2 Delivery O2 Flow Rate FiO2 10/18/24 08:57 98.4 82 16 161/92 98 Room Air 0 Physical Exam Dictation General: awake, alert, NAD Head/Face: Normocephalic, atraumatic Eyes: PERRL, EOMI, vision at baseline ENT: oral cavity clear, TMs clear, no signs of infection Neck: Trachea midline, supple, no nuchal rigidity Cardiovascular: RRR, normal S1/S2, No MRGs, no JVD Respiratory: CTAB, no respiratory distress, No rales or wheezes Abdomen: Soft, non-tender, non-distended, normal bowel sounds, no guarding or rebound. Skin: Warm, dry, normal turgor, no rash MS/Extremity: Pulses equal, no cyanosis, neurovascular intact, FROM Neuro: COAx4, GCS 15, strength 5/5, CN 2-12 intact, normal cerebellar exam, normal gait, Psych: Normal behavior, mood, and affect normal Results (Laboratory/Radiology) Laboratory/Radiology Laboratory Tests Test 10/18/24 09:11 10/18/24 09:14 Influenza Type A Antigen Negative For Type A Influenza Type B Antigen Negative For Type B SARS-CoV-2 Antigen (Rapid) POSITIVE FOR SARS AG White Blood Count 4.5 K/uL (4.8-10.8) L Red Blood Count 4.57 MIL/uL (4.00-5.50) Hemoglobin 12.2 g/dL (12.0-16.0) Hematocrit 37.9 % (36-48) Mean Corpuscular Volume 82.9 fL (79-99) Mean Corpuscular Hemoglobin 26.7 pg (27.0-33.0) L Mean Corpuscular Hemoglobin Concent 32.2 g/dL (32.0-36.0) Red Cell Distribution Width 14.4 % (11.0-15.5) Platelet Count 171 K/uL (130-400) Mean Platelet Volume 11.3 fL (7.5-10.5) H Immature Granulocyte % (Auto) 0.4 % (0-1) Neutrophils (%) (Auto) 70.7 % (40.0-77.0) Lymphocytes (%) (Auto) 15.4 % (21.0-51.0) L Monocytes (%) (Auto) 12.7 % (3.0-13.0) Eosinophils (%) (Auto) 0.4 % (0.0-8.0) Basophils (%) (Auto) 0.4 % (0.0-5.0) Neutrophils # (Auto) 3.2 K/uL (1.8-7.7) Lymphocytes # (Auto) 0.7 K/uL (1.0-4.8) L Monocytes # (Auto) 0.6 K/uL (0.1-1.0) Eosinophils # (Auto) 0.02 K/uL (0.00-0.70) Basophils # (Auto) 0.02 K/uL (0.00-0.20) Absolute Immature Granulocyte (auto 0.02 K/uL (0-1) Nucleated Red Blood Cells 0.0 % (0.0-0.19) Sodium Level 141 mmol/L (136-145) Potassium Level 3.6 mmol/L (3.5-5.1) Chloride Level 104 mmol/L (101-111) Carbon Dioxide Level 32 mmol/L (21-32) Blood Urea Nitrogen 18 mg/dL (7-18) Creatinine 1.1 mg/dL (0.5-1.0) H Glomerular Filtration Rate Calc 60 mL/min (>90) Random Glucose 99 mg/dL (70-105) Total Calcium 8.4 mg/dL (8.5-10.1) L Troponin I High Sensitivity 9 ng/L (4-50) Labs Reviewed?: Yes EKG: (+) NSR, (+) QRS, (+) nonspecific ST T wave chg, (+) nonspecific ST T wave chg ED Course ED Course Orders Procedure Category Date Status Time Covid19 (Sars Antigen LAB 10/18/24 Complete Rapid) 08:59 Influenza Type A & B, LAB 10/18/24 Complete Rapid 08:59 Chest 1vw RAD 10/18/24 Taken 08:59 12 Lead Ekg Tracing- EKG 10/18/24 Logged Technical 08:59 Basic Metabolic Panel LAB 10/18/24 Complete 08:59 Cbc With Differential LAB 10/18/24 Complete 08:59 Troponin I High LAB 10/18/24 Complete Sensitivity 08:59 Vital Signs Date Time Temp Pulse Resp B/P (MAP) Pulse Ox O2 Delivery O2 Flow Rate FiO2 10/18/24 08:57 98.4 82 16 161/92 98 Room Air 0 Medical Decision Making MDM MDM: Differential diagnosis: Rationale: Tests considered and ordered secondary to shared decision making include: Previous outside records reviewed: Old ER visits. Risk of complication and/or morbidity or mortality of patient management: None Medications-Per medication reconciliation Need for hospitalization: Patient does not meet criteria for hospitalization. Need for emergency major/minor surgery: No There are no social concerns with this patient. Prescription drug management Prescriptions will include symptomatic care Patient's prior external medical records from other ER visits were reviewed by me as indicated. Prior testing and results from previous visits were reviewed. Prior tests were taken into account with medical decision making and resource utilization, independent historian/historians were used to obtain complete med [facility] history. I independently interpreted the test that were performed, results were reviewed by me and considered findings on radiology if ordered. Medical management and examination interpretation discussions were had by me with other qualified healthcare professionals as indicated for the patient's care. 53-year-old female URI, clear chest x-ray negative cardiac workup stable for discharge. DX & DISP Disposition: Discharge Departure Impression: Primary Impression: COVID-19 Additional Impression: Acute URI Condition: Stable Scripts Azithromycin (Azithromycin) 250 Mg Tablet 250 MG PO AD for cough for 5 Days, #6 TAB Prov: RADHA MURILLO MD 10/18/24 Referrals: TERA LEDBETTER MD (PCP) RADHA MUIRLLO MD Oct 18, 2024 10:02
[2024-10-18 10:07] LABS: COVID19 (SARS ANTIGEN RAPID) POSITIVE FOR SARS AG (NEGATIVE)
[2024-10-18] MEDS ORDERED: AZIT250T9 PO (10:20)
--- NOTE | 2024-10-18 10:21 | HMCIMG ---
EXAM: CR Chest, 1 View. CLINICAL HISTORY: cough COMPARISON: None provided. FINDINGS: LUNGS: Right upper lobe airspace disease may reflect an infectious process. PLEURAL SPACES: No evidence of pleural effusion or pneumothorax. MEDIASTINUM: The cardiomediastinal silhouette is within normal limits. BONES: No acute osseous abnormality. IMPRESSION: Right upper lobe airspace disease may reflect infectious process. /Ozone
--- NOTE | 2024-10-18 10:39 | EKG ---
[facility] Test Date: 2024-10-18 Test Time: 09:05:22 Pat Name: GRISEL CABRAL Department: [facility] Room: 301 Gender: F Graphic Coordinator: [id number] : 1970 Requested By: RADHA MURILLO Order Number: [id number] Reading MD: Marie Rodriguez Measurements Intervals [place] Rate: 80 P: 36 NH: 166 QRS: 5 QRSD: 90 T: -4 QT: 391 QTc: 452 Interpretive Statements Sinus rhythm Left ventricular hypertrophy Compared to ECG 05/25/2021 13:03:43 No significant changes Electronically Signed On 10-19-2024 14:08:06 CDT by Marie Rodriguez Please click the below link to view image of tracing.
[2024-10-18] MEDS: 0.9%NACL 1000ML 1,000 ML IV ONE (11:17)
[2024-10-18 12:42] VITALS: TEMP 98.8
[2024-10-18] MEDS: DEXTROSE 5 %-0.45 % NACL 1,000 ML IV SCH (12:42)
[2024-10-18 15:32] VITALS: BP 202/99; PULSE 74; RESP 18; TEMP 98.2
[2024-10-18] MEDS ORDERED: IBUP-2077 PO (15:58)
[2024-10-18] MEDS ORDERED: ACET-3573 PO (16:05)
[2024-10-18] MEDS ORDERED: TIRZ7.5P SQ (16:05)
[2024-10-18] MEDS ORDERED: AMLO-517 PO (16:38)
--- NOTE | 2024-10-18 16:42 | NUR ---
ADMISSION ASSESSMENT DONE. A&O X4. REQUESTING NOT TO WEAR HOSPITAL GOWN OR SOCKS AT THIS TIME
[2024-10-18 17:38] VITALS: O2SAT 97
--- NOTE | 2024-10-18 17:46 | NUR ---
DR TERRY NOTIFIED OF PATIENT'S ADMISSION; ALSO INFORMED THAT HOME MEDS ENTERED; PENDING RECONCILIATION
[2024-10-18 20:00] VITALS: BP 184/99; PULSE 76; RESP 16; TEMP 98.5; O2SAT 96
[2024-10-19] VITALS: BP 161/98; PULSE 81; RESP 20; TEMP 98.3
[2024-10-19 03:25] VITALS: BP 156/87; PULSE 79; RESP 20; TEMP 98.3
[2024-10-19 05:11] LABS: IMMATURE GRANULOCYTE ABSOLUTE 0.02 K/uL (0-1); NUCLEATED RED BLOOD CELLS 0.0 % (0.0-0.19); PLATELET COUNT (AUTO) 161 K/uL (130-400); RED BLOOD CELL COUNT(AUTO) 4.38 MIL/uL (4.00-5.50); RED CELL DISTRIBUTION WIDTH 14.3 % (11.0-15.5); WHITE BLOOD COUNT (AUTO) 3.3 K/uL (4.8-10.8)
[2024-10-19 05:42] LABS: ASPARTATE AMINOTRANSFERASE 18.0 U/L (10-37); CREATININE 0.9 mg/dL (0.5-1.0); GLOMERULAR FILTR. RATE CALC 77.0 mL/min (>90); GLUCOSE,RANDOM 114.0 mg/dL (70-105); SODIUM SERUM 137.0 mmol/L (136-145); TOTAL PROTEIN, SERUM 7.0 g/dL (6.0-8.3); UREA NITROGEN, BLOOD 15.0 mg/dL (7-18)
[2024-10-19 08:22] VITALS: O2SAT 94
[2024-10-19 08:33] VITALS: BP 164/84; PULSE 72; RESP 18; TEMP 98.8
[2024-10-19] MEDS ORDERED: [UNRECOGNIZED DRUG - OTHER] PO SCH (09:00)
[2024-10-19] MEDS: OLMESARTAN PO SCH (09:00)
[2024-10-19] MEDS ORDERED: OLMESARTAN MED PO SCH (09:00)
[2024-10-19] MEDS: AMLODIPINE PO SCH (09:00)
[2024-10-19] MEDS ORDERED: AMLODIPINE BES PO SCH (09:00)
[2024-10-19 09:44] VITALS: BP 164/84
--- NOTE | 2024-10-19 11:07 | NUR ---
DCP:HOME Pt currently lives with her Yasir Patel. Pt does not have any DME, home health, or provider services. Pt is able to complete all ADLs independently. PCP is Dr. Leon and uses [facility] for any RX needs. At [place] pt will want to go home and family can assist with transportation. Addendum: 10/19/24 at 1114 by LORENZO TEMPLE SS Amended: Links added.
--- NOTE | 2024-10-19 13:10 | NUR ---
D/C INSTRUCTIONS GIVEN AND ACKNOWLEDGED. IV REMOVED
--- NOTE | 2024-10-20 07:15 | HP ---
HISTORY OF PRESENT ILLNESS: The patient of Dr. Leon. She came to the Emergency Room complaining of generalized body weakness, productive cough, and cold symptoms. ALLERGIES: TO CLINDAMYCIN AND FISH. MEDICATIONS: Naproxen, Ozempic, amlodipine, and carvedilol. PAST MEDICAL HISTORY: Type 2 diabetes, hypertension, and dyslipidemia. REVIEW OF SYSTEMS: No fever, chills, seizures, or loss of consciousness. No chest pain or palpitations. No nausea, vomiting, or diarrhea. No dysuria, urgency, or frequency. No rashes, petechiae, or ecchymoses. No hallucinations, delusions, or suicidal ideations. PHYSICAL EXAMINATION: GENERAL: She is awake, alert, and oriented in person, time, and place. Not in distress. VITAL SIGNS: In the chart. HEENT: Normocephalic, atraumatic. LUNGS: Clear to auscultation. HEART: S1 and S2 are distant. ABDOMEN: Soft and nontender. EXTREMITIES: No clubbing or cyanosis. LABORATORY AND IMAGING DATA: WBC count 3.3, hemoglobin 11.6, platelets 161. Sodium 137, potassium 3.9, BUN 15, creatinine 0.9, calcium 7.9. Albumin 3. Chest x-ray shows right upper lobe air space disease, may reflect an infectious process. ASSESSMENT AND PLAN: * Generalized body weakness and dehydration. Continue with IV fluids. * COVID test positive. Continue with symptomatic treatment. * Type 2 diabetes and hypertension. Continue home medications. * The patient might be able to be discharged home to continue therapy at home. She will be followed by Dr. Leon. DOS;10/19/2024 TID: [id number] RECEIPT: [id number] MTD
--- NOTE | 2024-10-20 21:49 | DS ---
Discharge Summary DIAGNOSE(S): [ * Generalized body weakness and dehydration. Continue with IV fluids. * COVID test positive. Continue with symptomatic treatment. * Type 2 diabetes and hypertension. Continue home medications. * The patient might be able to be discharged home to continue therapy at home.] HOSPITAL COURSE SUMMARY: [] SECONDARY ENGLISH TEACHER(S): [] PROCEDURE(S)/TREATMENT(S): [] PROBLEM(S): [] FOLLOW-UP TEST(S): [none] DISCHARGE INSTRUCTIONS: f/u pcp 1 d] Home Meds Reported Medications Amlodipine Bes/Olmesartan Med (Amlodipine-Olmesartan 10-40 mg) 10 Mg-40 Mg Tablet, 1 TAB PO DAILY 10/18/24 Acetaminophen (8Hr Arthritis Pain) 650 Mg Tablet.er, 650 MG PO TID, TAB 10/18/24 Tirzepatide (Mounjaro) 7.5 Mg/0.5 Ml Pen.injctr, 7.5 MG SQ QWEEK 10/18/24 Ibuprofen (Ibuprofen 800 mg Tab) 800 Mg Tab, 1 TAB PO BID for pain for 10 Days, #30 TAB 0 Refills 10/18/24 Carvedilol (Carvedilol) 12.5 Mg Tablet, 12.5 MG PO BID, TAB 08/15/18 Discontinued Reported Medications Semaglutide (Ozempic) 1 Mg/0.75 Ml Pen.injctr, 1 MG SQ QWEEK EVERY Friday05/26/21 Amlodipine Besylate (Amlodipine Besylate) 5 Mg Tablet, 5 MG PO DAILY, TAB 05/26/21 Discontinued Scripts Azithromycin (Azithromycin) 250 Mg Tablet, 250 MG PO AD for cough for 5 Days, #6 TAB Prov:RADHA MURILLO MD 10/18/24 Cephalexin Monohydrate (Keflex) 500 Mg Cap, 1 CAP PO TID for 10 Days, #30 CAP 0 Refills Prov:CLAUDIA CLINE MD 05/28/24 Diclofenac Sodium (Diclofenac Sodium) 3 % Gel..gram., 1 APPL TP QID for 14 Days, #100 GM 1 Refill Prov:CLAIRE ARDON MD 11/22/23 Naproxen (Naproxen) 500 Mg Tablet.dr, 500 MG PO BIDPC, #30 TAB 1 Refill Prov:CLAIRE ARDON MD 11/08/23 Naproxen (Naproxen) 500 Mg Tablet., 500 MG PO BID for 7 Days, #14 TAB Prov:DAYANARA ARSHAD MD 07/12/22 TERA LEDBETTER MD Oct 20, 2024 21:49
== END 2024-10-19 14:50 | disposition home or self-care (01) ==
LOC: EDH 08:56 → EDHIP 11:06 → 3AH 15:32
PROVIDERS: ADMIT Internal Medicine; ATTEND Internal Medicine
DX: U07.1 COVID-19 (principal); R53.1 Weakness; E11.9 Type 2 diabetes mellitus without complications; E78.5 Hyperlipidemia, unspecified; E86.0 Dehydration; I10 Essential (primary) hypertension; E66.01 Morbid (severe) obesity due to excess calories; M79.10 Myalgia, unspecified site; M19.90 Unspecified osteoarthritis, unspecified site; Z79.899 Other long term (current) drug therapy; Z98.890 Other specified postprocedural states
CPT/HCPCS: 96360; 96361 ×2; 99285; 84484; 80048; 85025 ×2; 87804 ×2; 87426; 36415 ×2; 71045; 93005; 80053; G0378 ×28; J7042; J7030

== ENCOUNTER → 2024-11-05 | Outpatient (CLI) | payer OTHER ==
[~2024-11-05] MED LIST changes: +ACET-3573 PO; -AMLO-257 PO; +AMLO-517 PO; -CEPH500B PO; -DICL100G32 TP; +IBUP-2077 PO; -NAPR-1506 PO; -SEMA1PEN3 SQ; +TIRZ7.5P SQ
--- NOTE | 2024-11-05 13:06 | HMCIMG ---
EXAM: LUMBAR SPINE 2-3VWS REASON: LUMBAR STENOSIS. COMPARISON: None. TECHNIQUE: 3 views of the lumbar spine were obtained. FINDINGS: There is normal appearance of the lumbar vertebral bodies. There are small marginal spur suggesting of early osteoarthritic changes most pronounced at L3-L4. There is a bulging disc seen posteriorly at L2-L3 and L3-L4 with calcification. The remaining intervertebral disc height are preserved. Alignment is normal. There are no visible fractures. Soft tissues appear unremarkable. IMPRESSION: 1. No acute fracture or malalignment There is a bulging disc seen at L2-L3 and L3-L4 which is causing a mild to moderate spinal canal stenosis. I would recommend MRI or CT for further workup..
--- NOTE | 2024-11-05 19:00 | HMCIMG ---
EXAM: MR Lumbar Spine Without Intravenous Contrast. CLINICAL HISTORY: Other specified post procedure states. TECHNIQUE: Magnetic resonance images of the lumbar spine in multiple planes. CONTRAST: None. COMPARISON: MRI dated 06/04/24. FINDINGS: For this examination, spinal levels were labeled assuming five non-rib bearing, lumbar-type vertebrae with the inferior labeled L5. L4 laminectomy. No acute fracture. Mild levoscoliosis. Mild degenerative anterolisthesis of L4 over L5. Multilevel spondylosis is evident by marginal osteophytes and facet joint arthropathy. Multilevel disc desiccation noted. Mild facet joint synovitis at the L4-L5 level. Normal vertebral body and disc heights. Normal marrow signal of the vertebrae. Conus medullaris terminates at the T12-L1 level. No abnormal epidural masses. Mild subcutaneous edema in the lower back. Individual spinal levels are described as follows: T12-L1: No disc bulge or herniation. No neural foraminal, lateral recess or spinal canal stenosis. L1-L2: No disc bulge or herniation. No neural foraminal, lateral recess or spinal canal stenosis. L2-L3: 4 mm disc osteophyte complex bulge and facet joint arthropathy causing mild indentation on the anterior thecal sac and mild bilateral foraminal narrowing. No lateral recess stenosis. L3-L4: 6 mm disc osteophyte complex bulge and facet joint arthropathy causing mild indentation on the anterior thecal sac and mild bilateral foraminal narrowing. No lateral recess stenosis. L4-L5: 4 mm anterolisthesis of L4 over L5 with uncovering of the posterior disc, facet joint arthropathy and medialization of the facet joints causing mild canal narrowing and mild bilateral foraminal narrowing. No lateral recess stenosis. L5-S1: 3 mm disc osteophyte complex bulge causing mild indentation on the anterior thecal sac. No neural foraminal or lateral recess stenosis. IMPRESSION: L4 laminectomy. Mild levoscoliosis. Mild degenerative anterolisthesis of L4 over L5. Moderate multilevel spondylosis. Mild facet joint synovitis at the L4-L5 level. Mild indentation on the anterior thecal sac and mild bilateral foraminal narrowing at the L2-L3 and L3-L4 levels. Mild canal narrowing and mild bilateral foraminal narrowing at the L4-L5 level. Mild indentation on the anterior thecal sac at the L5-S1 level. No significant interval changes. /Mather
== END | disposition home or self-care (01) ==
LOC: RAH 11:21
PROVIDERS: ATTEND Internal Medicine
DX: M47.816 Spondylosis without myelopathy or radiculopathy, lumbar region (principal); M43.16 Spondylolisthesis, lumbar region; M65.98 Unspecified synovitis and tenosynovitis, other site; M51.379 Other intervertebral disc degeneration, lumbosacral region without mention of lumbar back pain or lower extremity pain; M25.78 Osteophyte, vertebrae; M48.07 Spinal stenosis, lumbosacral region; M48.061 Spinal stenosis, lumbar region without neurogenic claudication; E66.01 Morbid (severe) obesity due to excess calories; M05.771 Rheumatoid arthritis with rheumatoid factor of right ankle and foot without organ or systems involvement; I10 Essential (primary) hypertension; E11.42 Type 2 diabetes mellitus with diabetic polyneuropathy; U07.1 COVID-19; J45.909 Unspecified asthma, uncomplicated; Z09 Encounter for follow-up examination after completed treatment for conditions other than malignant neoplasm; Z98.890 Other specified postprocedural states
CPT/HCPCS: 72100; 72148

== ENCOUNTER → 2025-02-16 | Outpatient (CLI) | payer OTHER ==
[2025-02-16 09:02] LABS: IMMATURE GRANULOCYTE ABSOLUTE 0.01 K/uL (0-1); NUCLEATED RED BLOOD CELLS 0.0 % (0.0-0.19); PLATELET COUNT (AUTO) 221 K/uL (130-400); RED BLOOD CELL COUNT(AUTO) 5.07 MIL/uL (4.00-5.50); RED CELL DISTRIBUTION WIDTH 14.5 % (11.0-15.5); WHITE BLOOD COUNT (AUTO) 6.6 K/uL (4.8-10.8)
[2025-02-16 09:41] LABS: ASPARTATE AMINOTRANSFERASE 16.0 U/L (10-37); CREATININE 1.0 mg/dL (0.5-1.0); GLOMERULAR FILTR. RATE CALC 67.0 mL/min (>90); GLUCOSE,RANDOM 95.0 mg/dL (70-105); LDL DIRECT 105.0 mg/dL (0-99); SODIUM SERUM 142.0 mmol/L (136-145); TOTAL PROTEIN, SERUM 7.9 g/dL (6.0-8.3); UREA NITROGEN, BLOOD 15.0 mg/dL (7-18)
== END | disposition home or self-care (01) ==
LOC: LAB 08:17
PROVIDERS: ATTEND Internal Medicine
DX: E11.42 Type 2 diabetes mellitus with diabetic polyneuropathy (principal); I10 Essential (primary) hypertension; E66.01 Morbid (severe) obesity due to excess calories; H81.10 Benign paroxysmal vertigo, unspecified ear; I69.322 Dysarthria following cerebral infarction; M05.771 Rheumatoid arthritis with rheumatoid factor of right ankle and foot without organ or systems involvement; M48.061 Spinal stenosis, lumbar region without neurogenic claudication; Z98.890 Other specified postprocedural states; Z79.899 Other long term (current) drug therapy
CPT/HCPCS: 36415; 80048; 80061; 80076; 82306; 82607; 83036; 84443; 85025